=== PATIENT | male | born 1980 | race Caucasian/White ===

== ENCOUNTER 2024-04-16 09:37 | Outpatient (REF) | payer MEDICAID, SELFPAY ==
[2024-04-16 11:54] LABS: Alanine Aminotransferase 18 U/L (0-40); Albumin Level 3.7 g/dL (3.5-5.0); Alkaline Phosphatase 89 U/L (39-117); Anion Gap 13 (12-20); Aspartate Amino Transferase 25 U/L (5-37); Bilirubin Total 0.5 mg/dL (0.0-1.0); Blood Urea Nitrogen 12 mg/dL (9-16); Calcium 9.5 mg/dL (8.4-10.2); Carbon Dioxide 24 mmol/L (22-29); Chloride 107 mmol/L (96-108); Cholesterol 143 mg/dL (<200); Estimated Glomerular Filt Rate > 60; Glucose Random 80 mg/dL (60-115); HDL Cholesterol 39 mg/dL (>40); LDL Cholesterol Calculated 88 mg/dL (<100); Potassium 3.4 mmol/L (3.3-5.1); Sodium 141 mmol/L (135-145); Total Protein 9.2 g/dL (6.5-8.0); Triglycerides 82 mg/dL (<150)
--- OUTSIDE RECORDS SUMMARY | 2024-04-16 14:04 | XMS_ITS | Clinical Summary ---
Author Organization [facility] Address [address] [id number] Care Team Providers Care Ppap Coordinator Name Role Phone Rodrigo Goodwin Primary Care Provider [phone] Allergies No known active allergies Medications amLODIPine (NORVASC) 5 mg tablet Take 5 mg by mouth. 10/16/2022 Active aspirin chewable tablet 81 mg SMARTSI Tablet(s) By Mouth Daily Active metoprolol tartrate (LOPRESSOR) 25 mg tablet SMARTSI Tablet(s) By Mouth Twice Daily 11/22/2022 Active potassium citrate ER (UROCIT-K) 10 mEq (1,080 mg) tablet SMARTSI Tablet(s) By Mouth Twice Daily Active simethicone (MYLICON) 80 mg chewable tablet SMARTSI Tablet(s) By Mouth 3 Times Daily PRN Active sulfamethoxazole -trimethoprim (BACTRIM SS) 400-80 mg tablet SMARTSI Tablet(s) By Mouth Daily Active tolterodine LA (DETROL LA) 4 mg 24 hr capsule Take 4 mg by mouth. 10/16/2022 Active Active Problems Problem Noted Date Diagnosed Date Abscess and cellulitis of gluteal region 024 Sacral decubitus ulcer, stage III 01/03/2023 Decubitus ulcer of right ischial area, stage III 01/03/2023 Social History Tobacco Use Types Packs/Day Years Used Date Smoking Tobacco: Never Smokeless Tobacco: Never Tobacco Cessation:Counseling Given: Not Answered Sex and Gender Information Value Date Recorded Sex Assigned at Male 12/08/2023 3:30 PM EDT Legal Sex Male 2:27 PM EDT Gender Identity Not on file Sexual Orientation Not on file Last Filed Vital Signs Vital Sign Reading Time Taken Comments Blood Pressure 125/90 12/27/2023 11:07 AM EDT Pulse 98 12/27/2023 11:07 AM EDT Temperature 36.9 ??C (98.5 ??F) 12/27/2023 11:07 AM E DT Respiratory Rate - - Oxygen Saturation - - Inhaled Oxygen Concentration - - Weight - - Height - - Body Mass Index - - Plan of Treatment Health Maintenance Due Date Last Done Comments HIV Screening 1979 Hepatitis C Screening 1980 Varicella Vaccines (1 of 2 - 13+ 2-dose series) 12/16/1992 Hepatitis B Vaccines (1 of 3 - 19+ 3-dose series) 12/16/1998 COVID-19 Vaccine (3 - season) 2023 08/08/2020, 07/17/2020 Influenza Vaccine (#1) 2023 9, 12/27/2017, 02/05/2016, Additional history exists Alcohol/Substance Use Screening 03/21/2024 Depression Screening and Follow-Up 03/21/2024 Social Drivers of Health Annual Screening 03/21/2024 DTaP,Tdap,and Td Vaccines (2 - Td or Tdap) 2024 2014 RSV Vaccine (60+ years old and patients) (1 - 1-dose 75+ series) 12/16/2054 Pneumococcal Vaccine: Pediatric (0-5 Years) and At-Risk Patients (6-64 Years) Aged Out 01/28/2012, 01/08/2010 No longer eligibl e based on patient's age to complete this topic Insurance [employer] Advance Directives Healthcare Agents on File Name Relationship Healthcare Agent Relationship Communication Masha Chairez Mother Next of Kin Care Teams Ppap Coordinator Relationship Specialty Start Date End Date Rodrigo Goodwin PA [address] [place] [address] E/R RENATA Charles [address] PCP - General Emergency Medicine 12/29/22
--- OUTSIDE RECORDS SUMMARY | 2024-04-16 14:04 | XMS_ITS | Encounter Summary ---
Author Organization [employer] [facility] Address [address] [place] [address] 7 [place] [address] Care Team Providers Care Shale Planer Operator Name Role Phone Candido Lozano MD Primary Care Provide r Encounter Details Date Type Department Care Team (Latest Contact Info) Description 06/17/2021 Abstract [facility] Dental, Provider, DDS Social History Tobacco Use Types Packs/Day Years Used Date Smoking Tobacco: Never Assessed Sex and Gender Information Value Date Recorded Sex Assigned at Male 01/18/2022 10:17 AM EDT Legal Sex Male 10:17 AM EDT Gender Identity Male 01/18/2022 10:17 AM EDT Sexual Orientation Choose not to disclose 2021 10:17 AM EDT documented as of this encounter Plan of Treatment Upcoming Encounters Date Type Department Care Team ( st Contact Info) Description 04/19/2024 1:30 PM EST Office Visit [facility] [address] [place] [address] Candido Lozano MD [address] [place] [address] 07/12/2024 2:30 PM EDT Office Visit [facility] [address] [place] [phone] Candido Lozano MD [address] [place] [address] documented as of this encounter Visit Diagnoses Not on filedocumented in this encounter Care Teams Shale Planer Operator Relationship Specialty Start Date End Date Candido Lozano MD [address] [place] [address] [place] [address] PCP - General Internal Medicine 12/13/13 Brittany Wong Foxing PainterVarnish Mixer 03/08/24 documented as of this encounter
--- OUTSIDE RECORDS SUMMARY | 2024-04-16 14:04 | XMS_ITS | Encounter Summary ---
Author Organization [employer] Address [address] [facility] 7t [place] [address] Care Team Providers Care Manager Ob Name Role Phone Candido Lozano MD Primary Care Provide r Reason for Visit * Reason Onset Date Comments DME from [facility] pull up 04/06/2024 Encounter Details Date Type Department Care Team ([facility] st Contact Info) Description 04/06/2024 Telephone [facility] [address] [place] [address] Laura Quick MA DME from [facility] pull up Social History Tobacco Use Types Packs/Day Years Used Date Smoking Tobacco: Never Passive Smoke Exposure: Never Smokeless Tobacco: Never Depression Answer Date Recorded Patient Health Questionnaire-9 Score 0 07/05/2023 Patient Health Questionnaire-9 Score 0 07/05/2023 Last PHQ-9: Questionnaire Data Not on file 0 07/05/2023 Housing Stability Answer Date Recorded What is your housing situation today? I have jose berger 01/10/[address] you li ve. Do you have problems with any of the following? None of the above 01/10/2023 Food Insecurity Answer Date Recorded Within the past 12 months, y ou worried that your food would run out before you got money to buy more: Sometimes True 2023 Within the past 12 months,th e food you bought just didn't last and you didn't have enough money to get more: Sometimes True 06/23/2023 Transportation Answer Date Recorded In the past 12 months, has l ack of transportation kept you from medical appts, meetings, work or from getting things needed for daily living? No 06/23/2023 Utilities Answer Date Recorded In the past 12 months, has t he electric, gas, oil or water company threatened to shut off services in your home? No 01/10/2023 Depression Answer Date Recorded Patient Health Questionnaire-2 Score 0 07/05/2023 Sex and Gender Information Value Date Recorded Sex Assigned at Male 01/18/2022 10:17 AM EDT Legal Sex Male 10:17 AM EDT Gender Identity Male 01/18/2022 10:17 AM EDT Sexual Orientation Choose not to disclose 2021 10:17 AM EDT documented as of this encounter Miscellaneous Notes * Telephone Encounter - Laura Quick MA - 04/06/2024 10:13 AM EST [facility] prescription and medical necessity review form for Absorbant products for Diapers/pull ups from [employer] placed on PCP desk for signature. documented in this encounter Plan of Treatment Upcoming Encounters Date Type Department Care Team (Late st Contact Info) Description 04/19/2024 1:30 PM EST Office Visit [facility]INE [address] [place] [address] Candido Lozano MD [address] [place] [address] 07/12/2024 2:30 PM EDT Office Visit [facility] [address] [place] [address] Candido Lozano MD [address] [place] [address] documented as of this encounter Visit Diagnoses Not on filedocumented in this encounter Additional Health Concerns Assessment Noted Time PHQ-9 Depression Total Score: 0 07/05/19 24 10:42 AM EDT documented as of this encounter Care Teams Manager Ob Relationship Specialty Start Date End Date Candido Lozano MD [address] [place] [address] PCP - General Internal Medicine 12/13/13 Brittany Wong Behaviour Support TeacherRim Fire Charger Operator 03/08/24 documented as of this encounter
--- OUTSIDE RECORDS SUMMARY | 2024-04-16 14:04 | XMS_ITS | Encounter Summary ---
Author Organization [employer] Address [address] [facility] 7t [place] [address] Care Team Providers Care Mitten Stitcher Name Role Phone Candido Lozano MD Primary Care Provide r Encounter Details Date Type Department Care Team (Late st Contact Info) Description 03/28/2024 Patient Outreach [facility] [address] [place], [place] [phone] Candido Lozano MD [address] [place], [place] [phone] Social History Tobacco Use Types Packs/Day Years [...] t he electric, gas, oil or water [employer] threatened to shut off services in your [...] as of this encounter Miscellaneous Notes * Significant Event - Claire Navarro - 03/28/2024 8:23 AM EST 03/28/24822 Hospital Discharges and Admission for [facility] Type of Visit Hospital Admission Date of Admission/Visit 03/25/24 Date of Discharge 03/27/24 Facility [facility] Diagnosis Cellulitis of right buttock Disposition Discharged Home Follow-Up Actions Follow-Up Needed Provider appointment Follow-Up Outcome Spoke to Patient Initial Contact Date 03/28/24 EVELINA Rangel placed outbound call to patient for HDF outreach. CC placing call to offer patient with an HDF appointment with provider. Patient's name and were confirmed. Patient was educated on the importance of following up with provider following an inpatient admission. Patient offered an HDF appt. Patient is agreeable to an appointment and has been scheduled for 04/19/2024 at 1:30 with --- insurance verified prior to scheduling. Patient advised to bring to appointment a photo id and insurance card. Biggest concerns at appointment at this time is --- Patient provided with education on contacting the Health Center with any questions or concerns prior to the scheduled appointment. Patient ed ucated on extended clinic hours on Mondays and Wednesdays, and Walk-In Urgent Care Located in [facility]. Patient provided with after-hours line for [facility], , which offer night time triageservice and option to transfer to windows phone developer provider if needed. CC will request Discharge summaries to scan into chart. documented in this encounter Plan of Treatment Upcoming Encounters Date Type Department Care Team ([facility] st Contact Info) Description 04/19/2024 1:30 PM EST Office Visit [facility] [address] [facility] [address] Candido Lozano MD [address] [place] [phone] 07/12/2024 2:30 PM EDT Office Visit [facility] [address] [place] [phone] Candido Lozano MD [address] [place] [phone] documented as of this encounter Visit Diagnoses Not on filedocumented in this encounter Additional Health Concerns Assessment Noted Time PHQ-9 Depression Total Score: 0 07/05/19 10:42 AM EDT documented as of this encounter Care Teams Mitten Stitcher Relationship Specialty Start Date End Date Candido Lozano MD [address] [place] MD [phone] PCP - General Internal Medicine 12/13/13 Brittany Wong Stamp Machine ServicerStudent Financial Services Counselor 03/08/24 documented as of this encounter
--- OUTSIDE RECORDS SUMMARY | 2024-04-16 14:04 | XMS_ITS | Encounter Summary ---
Author Organization [employer] Address [address] [facility] 7 [place] [address] Care Team Providers Care American Sign Language Interpreter Name Role Phone Candido Lozano MD Primary Care Provide r Reason for Visit * Reason Onset Date Comments Durable Medical Equipment 03/26/2024 Encounter Details Date Type Department Care Team ([facility] st Contact Info) Description 03/26/2024 Telephone [facility] MEDICINE [address] [place], [place] [phone] Candido Lozano MD [address] [place], [place] [phone] Durable Medical Equipment Social History Tobacco Use Types Packs/Day Years [...] encounter Miscellaneous Notes * Telephone Encounter - Howard Valle RN - 03/29/2024 9:46 AM EST DME for wound supplies signed and faxed to [facility] . Confirmation received and sent to [facility]. If patient calls to check status on above, please advise them to contact [facility] at [phone]. * Telephone Encounter - Howard Valle RN - 03/26/2024 12:55 PM EST General prescription form for Woundcare supplies from [facility] placed on PCP desk for signature. documented in this encounter Plan of Treatment Upcoming Encounters Date Type Department Care Team (Late st Contact Info) Description 04/19/2024 1:30 PM EST Office Visit [facility] MEDICINE [address] [place] [address] Candido Lozano MD [address] [place] [address] 07/12/2024 2:30 PM EDT Office Visit [facility]INE [address] [place] [address] Candido Lozano MD [address] [place] [address] documented as of this encounter Visit Diagnoses Not on filedocumented in this encounter Additional Health Concerns Assessment Noted Time PHQ-9 Depression Total Score: 0 07/05/19 10:42 AM EDT documented as of this encounter Care Teams American Sign Language Interpreter Relationship Specialty Start Date End Date Candido Lozano MD [address] [place] [address] PCP - General Internal Medicine 12/13/13 Brittany Wong Assistant Terminal ManagerCompounding Scaler 03/08/24 documented as of this encounter
--- OUTSIDE RECORDS SUMMARY | 2024-04-16 14:04 | XMS_ITS | Encounter Summary ---
Author Organization [employer] Address [address] [place] [address] 7 [place] [address] Care Team Providers Care Ip Technology Transactions Attorney Name Role Phone Candido Lozano MD Primary Care Provide r Reason for Visit * Reason Onset Date Comments Durable Medical Equipment 06/02/2022 Encounter Details Date Type Department Care Team (Late st Contact Info) Description 06/02/2022 Telephone [facility] [address] [place], [place] [phone] Candido Lozano MD [address] [place] [address] Durable Medical Equipment Social History Tobacco Use [...] encounter Miscellaneous Notes * Telephone Encounter - Marlyn Quick - 06/07/2022 10:42 AM EDT Called Brittany from [facility] gave her all the info on bed and [facility] phone number she stated will f/u Tuesday with them * Telephone Encounter - Marlyn Quick - 06/07/2022 10:30 AM EDT Patient received hospital bed last yr in July was approved they stated for four months till November 2021 I asked [facility] how can that be given pt dx she put me on a brief hold to look further into it. Turns out it was an error on their end what wasn't approved was the air mattress but the bed was pd for. So Mame Kevin from [facility] store stated pt will receive his bed today or tomorrow latest. Any question [facility] phone number is [phone] * Telephone Encounter - Omer Hartley - 06/02/2022 2:47 PM EDT Tc from [place] with [facility] requesting a script for a hospital bed to be send [facility] Please contact Brittany at [phone] documented in this encounter Plan of Treatment Upcoming Encounters Date Type Department Care Team (Late st Contact Info) Description 04/19/2024 1:30 PM EST Office Visit [facility] [address] [place] [address] Candido Lozano MD [address] [place] [address] 07/12/2024 2:30 PM EDT Office Visit [facility] [address] [place] [address] Candido Lozano MD [address] [place] [address] documented as of this encounter Visit Diagnoses Not on filedocumented in this encounter Care Teams Ip Technology Transactions Attorney Relationship Specialty Start Date End Date Candido Lozano MD [address] [place] [address] PCP - General Internal Medicine 12/13/13 Brittany Wong Packaging AssemblerMaterial Control Supervisor 03/08/24 documented as of this encounter
--- OUTSIDE RECORDS SUMMARY | 2024-04-16 14:04 | XMS_ITS | Referral Summary ---
Author Organization [facility] Address [address] [phone] Care Team Providers Care Rock Loader Name Role Phone Rodrigo Goodwin Primary Care Provider [phone] Allergies No known active allergies Medications amLODIPine [...] Mass Index - - Plan of Treatment Not on file Insurance [employer] Advance Directives Healthcare Agents on File Name Relationship Healthcare Agent Relationship Communication Masha Chairez Mother Next of Kin Care Teams Rock Loader Relationship Specialty Start Date End Date Rodrigo Goodwin PA [address] [facility]- E/R RENATA [place] [address] PCP - General Emergency Medicine 12/29/22
--- OUTSIDE RECORDS SUMMARY | 2024-04-16 14:04 | XMS_ITS | Encounter Summary ---
Author Organization [employer] Address [address] [facility] 7 [place] [address] Care Team Providers Care Traffic Signal Supervisor Maintenance Name Role Phone Candido Lozano MD Primary Care Provide r Reason for Visit * Reason Onset Date Comments DME Uli 04/11/2024 Encounter Details Date Type Department Care Team ([facility] st Contact Info) Description 04/11/2024 Telephone [facility] [address] [place], [place] [phone] Candido Lozano MD [address] [place] [address] DME Uli Social History Tobacco Use Types Packs/Day Years [...] encounter Miscellaneous Notes * Telephone Encounter - Leonor Kelly MA - 04/11/2024 4:30 PM EST Received confirmation for wound cleanser, sent to to scan. LB documented in this encounter Plan of Treatment Upcoming Encounters Date Type Department Care Team (Late st Contact Info) Description 04/19/2024 1:30 PM EST Office Visit [facility] [address] [place] [phone] Candido Lozano MD [address] [place] [address] 07/12/2024 2:30 PM EDT Office Visit [facility] [address] [place] [phone] Candido Lozano MD [address] [place] [phone] documented as of this encounter Visit Diagnoses Not on filedocumented in this encounter Additional Health Concerns Assessment Noted Time PHQ-9 Depression Total Score: 0 07/05/19 10:42 AM EDT documented as of this encounter Care Teams Traffic Signal Supervisor Maintenance Relationship Specialty Start Date End Date Candido Lozano MD [address] [place] [phone] PCP - General Internal Medicine 12/13/13 Brittany Wong [place] CutterElevated Work Platform Operator 03/08/24 documented as of this encounter
--- OUTSIDE RECORDS SUMMARY | 2024-04-16 14:04 | XMS_ITS | Encounter Summary ---
Author Organization [employer] Address 75 [facility] 7t [place] [address] Care Team Providers Care Mental Health Clinician Name Role Phone Candido Lozano MD Primary Care Provide r Reason for Visit * Reason Comments Med Refill Encounter Details Date Type Department Care Team ([facility] st Contact Info) Description 03/25/2024 Refill [facility] [address] [place], [place] [phone] Tia Alfredo MD [address] [place], [place] [phone] Social History Tobacco Use Types Packs/Day Years [...] Description 04/19/2024 1:30 PM EST Office Visit [facility] [address] [place], [place] [phone] Candido Lozano MD [address] [place] [address] 07/12/2024 2:30 PM EDT Office Visit [facility] [address] [place] [address] Candido Lozano MD [address] [place] [phone] documented as of this encounter Visit Diagnoses Not on filedocumented in this encounter Additional Health Concerns Assessment Noted Time PHQ-9 Depression Total Score: 0 07/05/19 24 10:42 AM EDT documented as of this encounter Care Teams Mental Health Clinician Relationship Specialty Start Date End Date Candido Lozano MD [address] [place] [address] PCP - General Internal Medicine 12/13/13 Brittany Wong Lead Ios DeveloperAssociate Professor Of Engineering 03/08/24 documented as of this encounter
--- OUTSIDE RECORDS SUMMARY | 2024-04-16 14:04 | XMS_ITS | Encounter Summary ---
Author Organization [employer] Address [address] [place] [address] 7 [place] [address] Care Team Providers Care Ribbon Lapper Tender Name Role Phone Candido Lozano MD Primary Care Provide r Reason for Visit * Reason Onset Date Comments DME to [place] 04/06/2024 Encounter Details Date Type Department Care Team ([facility] st Contact Info) Description 04/06/2024 Telephone [facility] [address] [place], [place] [phone] Candido Lozano MD [address] [place], [place] [phone] DME to Uli Social History Tobacco Use Types Packs/Day Years Used Date Smoking Tobacco: Never Passive Smoke Exposure: Never Smokeless Tobacco: Never Depression Answer Date Recorded Patient Health Questionnaire-9 Score 0 07/05/2023 Patient Health Questionnaire-9 Score 0 07/05/2023 Last PHQ-9: Questionnaire Data Not on file 0 07/05/2023 Housing Stability Answer Date Recorded What is your housing situation today? I have jose bergre 01/10/[address] you li [...] Telephone Encounter - Leonor Kelly MA - 04/06/2024 9:15 AM EST Received confirmation for adult pull ups, sent to to scan. LB documented in this encounter Plan of Treatment Upcoming Encounters Date Type Department Care Team (Late st Contact Info) Description 04/19/2024 1:30 PM EST Office Visit [facility] [address] [place] [phone] Candido Lozano MD [address] [place] [phone] 07/12/2024 2:30 PM EDT Office Visit [facility] [address] [place] [address] Candido Lozano MD [address] [place] [phone] documented as of this encounter Visit Diagnoses Not on filedocumented in this encounter Additional Health Concerns Assessment Noted Time PHQ-9 Depression Total Score: 0 07/05/19 10:42 AM EDT documented as of this encounter Care Teams Ribbon Lapper Tender Relationship Specialty Start Date End Date Candido Lozano MD [address] [place] [phone] PCP - General Internal Medicine 12/13/13 Brittany Wong Cyber Incident HandlerCarboy Filler 03/08/24 documented as of this encounter
--- OUTSIDE RECORDS SUMMARY | 2024-04-16 14:04 | XMS_ITS | Encounter Summary ---
Author Organization [employer] Address [address] [facility] 7 [place] [address] Care Team Providers Care Sql Database Programmer Name Role Phone Candido Lozano MD Primary Care Provide r Reason for Visit * Reason Onset Date Comments Chart Prep 04/06/2024 Encounter Details Date Type Department Care Team ([facility] st Contact Info) Description 04/06/2024 Telephone [facility] [address] [place], [place] [phone] Candido Lozano MD [address] [place], [place] [phone] Chart Prep Social History Tobacco Use Types Packs/Day Years [...] Encounter - Leonor Kelly MA - 04/06/2024 2:26 PM EST Chart Prep Labs: not done ; contacted pt's parent or guardian with confirmed, expressed that there are some labs that need to be completed before expected appt. Pt's parent or guardian understood. Images: not applicable Vaccines due: Covid Due, Hep B Due, and Flu Due Referrals: Not Applicable Screenings: HIV screening Overdue care gaps: [facility] and Oral Health Chart prep for upcoming appt with Dr.Esparza salazar. LB documented in this encounter Plan of Treatment Upcoming Encounters Date Type Department Care Team (Late st Contact Info) Description 04/19/2024 1:30 PM EST Office Visit [facility] [address] [place] [phone] Candido Lozano MD [address] [place] [phone] 07/12/2024 2:30 PM EDT Office Visit [facility] [address] [place] [address] Candido Lozano MD [address] [place] [phone] documented as of this encounter Visit Diagnoses Not on filedocumented in this encounter Additional Health Concerns Assessment Noted Time PHQ-9 Depression Total Score: 0 07/05/19 24 10:42 AM EDT documented as of this encounter Care Teams Sql Database Programmer Relationship Specialty Start Date End Date Candido Lozano MD [address] [place] [phone] PCP - General Internal Medicine 12/13/13 Brittany Wong Employment And Claims AideDope Worker 03/08/24 documented as of this encounter
--- OUTSIDE RECORDS SUMMARY | 2024-04-16 14:04 | XMS_ITS | Encounter Summary ---
Author Organization [employer] Address [address] [facility] [address] 7[address] [place] [address] Care Team Providers Care Knapsack Sprayer Name Role Phone Candido Lozano MD Primary Care Provide r Encounter Details Date Type Department Care Team ([facility] st Contact Info) Description 04/02/2024 Telephone [facility] [address] [place] [address] De[place], [place] Social History Tobacco Use Types Packs/Day Years [...] encounter Miscellaneous Notes * Telephone Encounter - Mariaelena Philippe MA - 04/02/2024 10:25 AM EST DME for adult pull up diaper/brief; XL [id number] from [place] received and is being processed. documented in this encounter Plan of Treatment Upcoming Encounters Date Type Department Care Team (Late st Contact Info) Description 04/19/2024 1:30 PM EST Office Visit [facility] [address] [place] [phone] Candido Lozano MD [address] [place] [phone] 07/12/2024 2:30 PM EDT Office Visit [facility] [address] [place] [phone] Candido Lozano MD [address] [place] [phone] documented as of this encounter Visit Diagnoses Not on filedocumented in this encounter Additional Health Concerns Assessment Noted Time PHQ-9 Depression Total Score: 0 07/05/19 24 10:42 AM EDT documented as of this encounter Care Teams Knapsack Sprayer Relationship Specialty Start Date End Date Candido Lozano MD [address] [place] [phone] PCP - General Internal Medicine 12/13/13 Brittany Wong Director Of RecruitmentDirector Industrial 03/08/24 documented as of this encounter
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
== END 2024-04-16 09:38 | disposition home or self-care (01) ==
LOC: HO.HHCL 09:37
PROVIDERS: Visit Provider Internal Medicine
DX: I10 Essential (primary) hypertension (principal)
CPT/HCPCS: 36415; 80053; 80061

== ENCOUNTER 2024-11-14 10:43 | Outpatient (REF) | payer MEDICAID, SELFPAY ==
--- OUTSIDE RECORDS SUMMARY | 2020-12-08 09:30 | XMS_ITS | Continuity of Care Document ---
Author Organization [facility] Address [address] [facility] [address] [place] [address] Phone Care Team Providers Care Cable Installer Repairer Name Role Phone Hang Lofton MD Unavailable Unavailabl e Allergies, Adverse Reactions, Alerts Substance Reaction Status Criticality No Known Allergies Active No Inform ation Medications Medication Instructions Dosage Effective Dates (start - stop) Status Comments METFORMIN HCL (unknown strength) Not Available - Active Procedures Procedure Date Office/Outpt E&M Established 15 Mins Nov Duplex Scan-extrem Veins; Comp Duplex Scan-extrem Veins; Uni/ Endovenous Rf, 1st Vein Office/Outpt E&M Established 10 Mins Oct Office/Oupt E&M New Pt 45 Mins Duplex Scan-extrem Veins; Comp Advance Directives Directive Yes / No Effective Date File Name No Information Encounters Encounter Description Practice Location Reason(s) For Visit Diagnoses Date Provider Providers Copied on Encounter Office/Outpt E&M Established 15 Mins [facility], [address], [place], [place], [id number], [place] tel:[phone] - [facility] Body mass index (BMI) 40.0-44.9, adultVaricose veins of bi low extrem w oth complicationsVenou s insufficiency (chronic) (peripheral) Sep-2 1 Rolly Mauricio. [address], [address], [place], [address], [place]. tel: [phone] Referring Provider: Hang Lazo, [address], [place], [address]. tel:[phone] [facility], [address], [place], [place], [id number], [place] tel:[phone] [place] [facility] [place] Chronic venous htn w oth comp of bilateral low extrm Sep-2 1 Rolly Mauricio. [address], [address], [place], [address], [place]. tel: [phone] Referring Provider: Hang Lazo, [address] [place] [address] [address], [place], [address]. tel:[phone] [facility], [address], [place], [place], [id number], [place] tel:[phone] [place] [facility] [place] Encntr for f/u exam aft trtmt for cond oth than malig neoplmVaricose veins of left lower extremities with pain 1 Rolly Mauricio. [address] [place] [address], [address], [place], [address], [place]. tel: [phone] Referring Provider: Hang Lazo, [address], [place], [address]. 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 [address], [address], [place], [address], [place]. tel: [phone] Referring Provider: Hang Lazo, [address], [place], [place], [facility]. tel: Office/Outpt E&M Established 10 Mins [facility], [address] [place] [address], [id number], tel:[phone] [facility] Body mass index (BMI) 40.0-44.9, adultVenous insufficiency (chronic) (peripheral) 1 Rolly Mauricio. [address] [place] [address] [address], [place], [place], [facility], . tel: [phone] Referring Provider: Hang Lazo, [address] [place] [address], [place], [place], [facility]. tel: Office/Oupt E&M New Pt 45 Mins [facility], [address] [place] [address], [id number], [place] tel:[phone] [facility] Body mass index (BMI) 40.0-44.9, adultVenous insufficiency (chronic) (peripheral)Varico se veins of left lower extremities with pain 1 Rolly Mauricio. [address] [place] [address], [place], [address], [place]. tel: [phone] Referring Provider: Hang Lazo, [address] [place] [address], [place], [facility]. tel: [facility], [address] [place] [address], [id number], [place] tel:[phone] [facility] Chronic venous htn w inflammation of bilateral low extrmVaricose veins of bilateral lower extremities with pain 1 Rolly Mauricio. [address] [place] [address], [address], [place], [address], [place]. tel: [phone] Referring Provider: Hang Lazo, [address] [place] [address] [address], [place], [place], [facility]. tel:[phone] Family History Family Member Type Diagnosis Age At Onset No Information Payers Payer name Insurance type Covered democrat ID Tory longoria (s) [id number] [facility] [id number] Social History Type Description Quantity Date Captured Comments Alcohol Use Details No Caffeine Use Details Unknown Tobacco Use Status Never smoked tobacco 2020 Smoking Status Never smoker Non-Smoking Tobacco Use Details : No Details Available : No Details Available Sex Male Vital Signs Date / Time: Height Weight BMI Pulse Rate Blood Pressure Temperature Respiratory Rate Body Surface Area Head Circumference Head Circ. Percentile Wt./Ga. Percentile BMI percentile Pulse Ox Inhaled Ox 1:33 PM 70.00 in 128.367 kg (283.00 lbs) 40.6 0 kg/m eter (2) 98 /min 138/88 mm[Hg] Chief Complaint And Reason For Visit No Information Reason For Referral Reason For Referral No Information Plan Of Treatment Date Type Action Status Goal Diet education completed Goal Diet education completed Goal Diet education completed Referral Ordered: Duplex Scan-extrem Veins; Comp Bilateral leg ordered History Of Present Illness Encounter Date Complaint History Of Prese nt Illness No Information Functional Status Date Functional Assessmen t No Information Instructions Date Instruction Additional Infor mation Diet education Related to Body mass index [BMI]40.0-44.9, adult Giving Encouragement to Exercise Related to Body mass index [BMI]40.0-44.9, adult Patient education booklet given Related to V V w/Othr Complictns (Yjcy-Syejs-Klipzbif); BILAT Diet education Related to Body mass index [BMI]40.0-44.9, adult Giving Encouragement to Exercise Related to Body mass index [BMI]40.0-44.9, adult Continue compression stocking us e Related to Venous Insufficiency (Chronic / Peripheral) Pre and post instruc tions reviewed and provided Related to Venous Insufficiency (Chronic / Peripheral) Pre and post instruc tions reviewed and provided Related to Venous Insufficiency (Chronic / Peripheral) Patient education booklet given Related to Venous Insufficiency (Chronic / Peripheral) Diet education Related to Body mass index [BMI]40.0-44.9, adult Giving Encouragement to Exercise Related to Body mass index [BMI]40.0-44.9, adult Assessments Type Assessment Date assessment Body mass index [BMI]40.0-44.9, adult assessment Varicose veins of bi low extrem w oth complications assessment Venous insufficiency (chronic) ( peripheral) Patient Care Teams Name Effective Dates (start - stop) Status Members No Information
--- OUTSIDE RECORDS SUMMARY | 2024-11-14 11:37 | XMS_ITS ---
Author Organization [employer] Address [address] [place] [address] Care Team Providers Care Dog Trainer Name Role Phone Candido Lozano MD Primary Care Provide r Vincent Lundberg Unavailable Emile Lundberg RN Unavailable [phone] [phone] Complex Status:Outreach In Progress (Enrolling) Start date:10/02/2024 Enrollment reason:ADT Feed Overview ADT- admitted [facility] 10/02/24 Case Team Name Relationship Phone Vincent Lundberg(Responsible Staff) [phone] Continued Care and Services Coordination
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
--- OUTSIDE RECORDS SUMMARY | 2024-11-14 11:37 | XMS_ITS ---
Author Organization [employer] Address [address] [place] [address] Care Team Providers Care Feed Miller Name Role Phone Candido Lozano MD Primary Care Provide r Vincent Lundberg Unavailable Emile Lundberg RN Unavailable [phone] CM Complex Status:Outreach In Progress (Enrolling) Start date:10/02/2024 Enrollment reason:ADT Feed Overview ADT- admitted [facility] 10/02/24 Case Team Name Relationship Phone Emile Lundberg RN(Responsible Staff) Registered Nurse [phone] Continued Care and Services Coordination
--- OUTSIDE RECORDS SUMMARY | 2024-11-14 11:37 | XMS_ITS | Encounter Summary ---
Author Organization [facility] Address [address] [place] [phone] Phone Care Team Providers Care Progress Worker Name Role Phone Unavailable Primary Care Provider Unavailabl e Encounter Details Date Type Department Care Team (Late st Contact Info) Description 01/21/2020 Procedure Pass [facility] [address] [place] [address] [place] [address] Social History Tobacco Use Types Packs/Day Years Used Date Smoking Tobacco: Never Assessed Sex and Gender Information Value Date Recorded Sex Assigned at Not on file Legal Sex Male 12:02 PM EDT Gender Identity Not on file Sexual Orientation Not on file documented as of this encounter Plan of Treatment Not on file documented as of this encounter Visit Diagnoses Not on filedocumented in this encounter Additional Source Comments The information contained in this document represents components of the legal health record. It is not the complete legal health record.[facility]
--- OUTSIDE RECORDS SUMMARY | 2024-11-14 11:37 | XMS_ITS | Encounter Summary ---
Author Organization [employer] Address [address] [place] [address] [address], [place] [address] Care Team Providers Care International Nurse Name Role Phone Candido Lozano MD Primary Care Provide r Keerthi Rahman RN Unavailable [phone] Vincent Lundberg Unavailable Emile Lundberg RN Unavailable [phone] Reason for Visit * Reason Onset Date Comments Durable Medical Equipment 06/02/2022 Encounter Details Date Type Department Care Team (Late st Contact Info) Description 06/02/2022 Telephone [facility] [address] [place], [place] [phone] Candido Lozano MD [address] [place], [place] [phone] Durable Medical Equipment Social History Tobacco Use [...] 06/07/2022 10:42 AM EDT Called Brittany from [facility] gave her all the info on bed [...] bed today or tomorrow latest. Any question [facility] phone number is [phone] * Telephone Encounter - Omer Hartley - 06/02/2022 2:47 PM EDT Tc from [place] with [facility] requesting a script for a hospital bed to be send graciela L&C Please contact Brittany at [phone] documented in this encounter Plan of Treatment Upcoming Encounters Date Type Department Care Team (Late st Contact Info) Description 11/15/2024 11:30 AM EDT Office Visit [facility] [address] [place] [address] Candido Lozano MD [address] [place] [address] documented as of this encounter Visit Diagnoses Not on filedocumented in this encounter Care Teams International Nurse Relationship Specialty Start Date End Date Candido Lozano MD [address] [place] [address] PCP - General Internal Medicine 12/13/13 Keerthi Rahman RN [address] [place] [address] Registered Nurse Family Medicine 10/02/24 11/06/24 Vincent Lundberg 10/02/24 Emile Lundberg RN [address] [place] [address] Registered Nurse Family Medicine 11/06/24 Brittany Wong Lens Grinding Machine OperatorDocument Coordinator 03/08/24 [facility] 10/12/24 documented as of this encounter
--- OUTSIDE RECORDS SUMMARY | 2024-11-14 11:37 | XMS_ITS | Encounter Summary ---
Author Organization [facility] Address [address] [place] [address] Phone Care Team Providers Care Lumber Tripper Name Role Phone Unavailable Primary Care Provider Unavailabl e Encounter Details Date Type Department Care Team (Late st Contact Info) Description 01/21/2020 Ancillary Orders [facility] [address] [place] [address] Komal Arvizu PA [address] [place] [address] [email or web address] Palpitations Social History Tobacco Use Types Packs/Day Years Used Date Smoking Tobacco: Never Assessed Sex and Gender Information Value Date Recorded Sex Assigned at Not on file Legal Sex Male 12:02 PM EDT Gender Identity Not on file Sexual Orientation Not on file documented as of this encounter Plan of Treatment Not on file documented as of this encounter Results * Holter Monitor 48 Hours (01/21/2020 12:20 PM EST) Anatomical Region Laterality Modality Heart Other Narrative 01/21/2020 12:48 PM EST Holter monitor report Indication palpitations Findings: The underlying rhythm is sinus rhythm with an average heart rate 85 bpm. Minimum heart rate 56 bpm, maximal heart rate 130 bpm. There are rare isolated PVCs. There are frequent premature atrial contractions occurring 5% of total beats. There are rare atrial couplets. No sustained tachyarrhythmias. There were some very rare very short atrial runs of only 3 beats. Conclusion: Frequent premature atrial contractions. Procedure Note Armando Leslie MD - 01/21/2020 Holter monitor report Indication palpitations Findings: The underlying rhythm is sinus rhythm with an average heart rate 85 bpm.Minimum heart rate 56 bpm, maximal heart rate 130 bpm. There are rare isolated PVCs. There are frequent premature atrial contractions occurring 5% of totalbeats. There are rare atrial couplets. No sustained tachyarrhythmias.There were some very rare very short atrial runs of only 3 beats. Conclusion: Frequent premature atrial contractions. [facility] ORDERA BLES Final Result documented in this encounter Visit Diagnoses Diagnosis Palpitations Palpitations documented in this encounter Additional Source Comments The information contained in this document represents components of the legal health record. It is not the complete legal health record.[facility]
--- OUTSIDE RECORDS SUMMARY | 2024-11-14 11:37 | XMS_ITS | Encounter Summary ---
Author Organization [employer] Address [address] [place] [address], [place] [address] Care Team Providers Care Switch Cleaner Name Role Phone Candido Lozano MD Primary Care Provide r Keerthi Rahman RN Unavailable [phone] Vincent Lundberg Unavailable Emile Lundberg RN Unavailable [phone] Encounter Details Date Type Department Care Team (Latest Contact Info) Description 06/17/2021 Abstract [facility] CONVERSIONS Dental, Provider, DDS Social History [...] Description 11/15/2024 11:30 AM EDT Office Visit [facility] MEDICINE [address] [place], [place] [phone] Candido Lozano MD [address] [place], [place] [phone] documented as of this encounter Visit Diagnoses Not on filedocumented in this encounter Care Teams Switch Cleaner Relationship Specialty Start Date End Date Candido Lozano MD [address] [place], [place] [phone] PCP - General Internal Medicine 12/13/13 Keerthi Rahman, RN [address] [place] [address] Registered Nurse Family Medicine 10/02/24 11/06/24 Vincent Lundberg 10/02/24 Emile Lundberg RN [address] [place] [address] Registered Nurse Family Medicine 11/06/24 Brittany Wong Spout Liner HelperAssisted Living Housekeeper 03/08/24 [facility] 10/12/24 documented as of this encounter
--- OUTSIDE RECORDS SUMMARY | 2024-11-14 11:37 | XMS_ITS | Clinical Summary ---
Author Organization [facility] Address [address] [phone] Phone Care Team Providers Care Pathology Laboratory Technologist Name Role Phone Unavailable Primary Care Provider Unavailabl e Social History Tobacco Use Types Packs/Day Years Used Date Smoking Tobacco: Never Assessed Education Answer Date Recorded Are you interested in more education? Not on chan e 07/16/2022 Are you concerned about learning? Not on file 07/16/2022 No 07/16/2022 No 07/16/2022 Digital Access Answer Date Recorded No 08/17/2022 No 08/17/2022 Reliable internet access at home? Not on file 08/17/2022 Device with a working camera? Not on file Sex and Gender Information Value Date Recorded Sex Assigned at Not on file Legal Sex Male 12:02 PM EDT Gender Identity Not on file Sexual Orientation Not on file Plan of Treatment Not on file Medical Devices Not on file Insurance C3 ACO C3 ACO C3 ACO C3 ACO C3 ACO C3 ACO C3 ACO C3 ACO [facility] C3 ACO Additional Source Comments The information contained in this document represents components of the legal health record. It is not the complete legal health record.[facility]
--- OUTSIDE RECORDS SUMMARY | 2024-11-14 11:37 | XMS_ITS | Clinical Summary ---
Author Organization [facility] Address [address] [id number] Care Team Providers Care Truck Bench Mechanic Name Role Phone Rodrigo Goodwin Primary Care Provider [phone] Allergies No known active allergies Medications amLODIPine [...] 98 12/27/2023 11:07 AM EDT Temperature 36.9 C (98.5 F) 12/27/2023 11:07 AM EDT Respiratory Rate - - Oxygen Saturation - [...] Vaccine (3 - season) 2023 08/08/2020, 07/17/2020 Alcohol/Substance Use Screening 03/21/2024 Depression Screening and Follow-Up 03/21/2024 Social Drivers of Health Annual Screening 03/21/2024 Influenza Vaccine (#1) 2024 9, 12/27/2017, 02/05/2016, Additional history exists DTaP,Tdap,and Td Vaccines (2 - Td or Tdap) 2024 2014 RSV Vaccine (60+ years old and patients) (1 - 1-dose 75+ series) 12/16/2054 Pneumococcal Vaccine: Pediatric (0-5 Years) and At-Risk Patients (6-50 Years) Aged Out 01/28/2012, 01/08/2010 No longer eligibl e based on patient's age to complete this topic Insurance [employer] Advance Directives Healthcare Agents on File Name Relationship Healthcare Agent Relationship Communication Masha Chairez Mother Next of Kin Care Teams Truck Bench Mechanic Relationship Specialty Start Date End Date Rodrigo Goodwin PA [address] [place] [address] E/R RENATA Charles [address] PCP - General Emergency Medicine 12/29/22
[2024-11-14 13:16] LABS: MANUAL DIFF FLAG NO
[2024-11-14 14:07] LABS: Hematocrit 41.1 % (42.0-52.0); Hemoglobin 12.4 g/dl (14.0-18.0); Imm Gran Abs Auto 0.10 X10*3/uL (0.00-0.03); Imm Gran Pct Auto 0.6 % (0.0-0.4); Lymphocytes Absolute Auto 2.1 X10*3/uL (1.2-4.9); Mean Corpuscular HGB Conc 30.2 g/dl (31.0-36.0); Mean Corpuscular Hemoglobin 21.0 pg (27.0-33.0); Mean Corpuscular Volume 69.5 fL (80.0-98.0); NRBC Abs Auto 0.000 X10*3/uL (0.0-0.012); NRBC Pct Auto 0.0 /100WBC (0.0-0.2); Platelet Count 468 X10*3/uL (160-400); Red Blood Count 5.91 X10*6/uL (4.60-5.80); White Blood Count 16.8 X10*3/uL (4.8-10.8)
[2024-11-14 14:54] LABS: Alanine Aminotransferase 25 U/L (0-40); Albumin Level 3.9 g/dL (3.5-5.0); Alkaline Phosphatase 110 U/L (39-117); Anion Gap 18 (12-20); Aspartate Amino Transferase 36 U/L (5-37); Blood Urea Nitrogen 10 mg/dL (9-16); Calcium 9.7 mg/dL (8.4-10.2); Carbon Dioxide 22 mmol/L (22-29); Chloride 104 mmol/L (96-108); Estimated Glomerular Filt Rate > 60; Potassium 3.8 mmol/L (3.3-5.1); Sodium 140 mmol/L (135-145); Total Protein 8.9 g/dL (6.5-8.0)
== END 2024-11-14 10:44 | disposition home or self-care (01) ==
LOC: HO.HHCL 10:43
PROVIDERS: PCP Internal Medicine; Visit Provider Internal Medicine
DX: Z13.89 Encounter for screening for other disorder (principal)
CPT/HCPCS: 36415; 80053; 84443; 85025

== ENCOUNTER 2024-11-29 11:57 | Outpatient (REF) | payer MEDICAID, SELFPAY ==
--- OUTSIDE RECORDS SUMMARY | 2024-11-29 11:00 | XMS_ITS | Encounter Summary ---
Author Organization [employer] Address [address] [place] [address] Care Team Providers Care Lead Software Architect Name Role Phone Candido Lozano MD Primary Care Provide r Vincent Lundberg Unavailable Emile Lundberg RN Unavailable [phone] Encounter Details Date Type Department Care Team ([facility] st Contact Info) Description 11/29/2024 11:00 AM EDT Office Visit [facility] MEDICINE [address] [place], [place] [phone] Candido Lozano MD [address] [place], [place] [phone] Hospital discharge follow-up (Primary Dx); Paroxysmal atrial fibrillation (CMS/HCC); Pressure ulcers of skin of multiple topographic sites Social History Tobacco Use Types Packs/Day Years Used Date Smoking Tobacco: Never Passive Smoke Exposure: Never Smokeless Tobacco: Never Depression Answer Date Recorded Patient Health Questionnaire-9 Score 0 11/20/2024 Patient Health Questionnaire-9 Score 0 11/20/2024 Last PHQ-9: Questionnaire Data Not on file 0 11/20/2024 Housing Stability Answer Date Recorded What is [...] Date Recorded Patient Health Questionnaire-2 Score 0 11/20/2024 Internet Access Answer Date Recorded Internet Access Q1 Yes 08/07/2024 Internet Access Q2 Not on file 08/07/2024 Sex and Gender Information Value Date Recorded Sex Assigned at Male 01/18/2022 10:17 AM EDT Legal Sex Male 10:17 AM EDT Gender Identity Male 01/18/2022 10:17 AM EDT Sexual Orientation Choose not to disclose 2021 10:17 AM EDT documented as of this encounter Last Filed Vital Signs Vital Sign Reading Time Taken Comments Blood Pressure 110/66 11/29/2024 11:15 AM EDT Pulse 96 11/29/2024 11:15 AM EDT Temperature 37.2 C (98.9 F) 11/29/2024 11:15 AM EDT Respiratory Rate 20 11/29/2024 11:15 AM EDT Oxygen Saturation 98% 11/29/2024 11:15 AM EDT Inhaled Oxygen Concentration - - Weight 107 kg (235 lb) 11/29/2024 11:15 AM EDT Height 170.2 cm (5' 7 ) 11/29/2024 11:15 AM EDT Body Mass Index 36.81 11/29/2024 11:15 AM EDT documented in this encounter Progress Notes * Candido Camara MD - 11/29/2024 11:00 AM EDT SUBJECTIVE Robbin Bernstein Olman Castilloacho is a 43 y.o. male who presents for No chief complaint on file.. Douglas Olman Chairez, 43 years HPI Review of Systems Constitutional: Negative for fever. HENT: Negative for sore throat. Respiratory: Negative for cough and shortness of breath. Cardiovascular: Negative for chest pain. Gastrointestinal: Negative for abdominal pain. Neurological: Negative for headaches. Allergies[1] OBJECTIVE Vitals: 11/29/24 1115 BP: 110/66 BP Location: Left arm Patient Position: Standing BP Cuff Size: Adult Pulse: 96 Resp: 20 Temp: 98.9 ??F (37.2 ??C) TempSrc: Oral SpO2: 98% Weight: 235 lb (107 kg) Height: 5' 7 (1.702 m) Physical Exam Vitals reviewed. Constitutional: Appearance: Normal appearance. HENT: Head: Normocephalic and atraumatic. Right Ear: External ear normal. Left Ear: External ear normal. Nose: Nose normal. Mouth/Throat: Mouth: Mucous membranes are moist. Eyes: Conjunctiva/sclera: Conjunctivae normal. Cardiovascular: Rate and Rhythm: Normal rate and regular rhythm. Pulmonary: Effort: Pulmonary effort is normal. Breath sounds: Normal breath sounds. Skin: General: Skin is warm. Neurological: Mental Status: He is alert. Mental status is at baseline. Assessment/Plan Problem List Items Addressed This Visit Hospital discharge follow-up - Primary Pt here for a HDF Admitted to [facility] 10/02-10/15/2024 after he presented with fevers and rigors as well as increase purulent discharge from sacral coccygeal wounds. He is followed by wound care and ID with daily dressing changes, had CTA revealing fistulous tracts between rectum and sacral ulcer, no signs of acute osteomyelitis atthat time. While in the hospital had an EKG that showed A.fib with RVR and leukocytosis (16.4). U/A with positive nitrate. CT abdomen ashowed: worsening edema around sacral decubitus ulcer with a possible fistula tract extending from the posterior rectum into the ulcer which was present on prior studies but no abcess. MRI 10/06 extensive changes, scarring , hyperenhancement, multiple fluid collections in the subcutaneous fat posterior to the sacrum and in both gluteal regions contiguous with a low posteriorly directed proctoscopy cutaneous fistula. The cocxys and distal aspects of S3 are absent with contiguous enh ancement and edema in the posterior sacrum that extends to the lower spinal canal concerning for associated osteomyelitis and dural infection/inflammation While in the hospital patient was evaluated by Colorectal surgeon and ID Pt had an I&D by surgery 10/07 Cx gre: pseudomonas Initially treated with Cefepime +Flagyl+Linezolid, subsequently switched to Meropenem + Linezolid PICC line placed 10/10/2024. Recommended Abx duration 3 weeks End date 10/27/2024 Or until MRI repeated. Weekly CBC, CMP Pt tells me he had a repeat MRI pelvis and was told that it looked better but still decided to prolong his antibiotic regimen until the end of October. Pt's PICC line was removed and he finished allantibiotics Pt will continue to follow with wound clinic and surgical team Relevant Orders CBC auto differential (Completed) Urinalysis, Complete, with Reflex to Culture Paroxysmal atrial fibrillation (CMS/HCC) Back to NSR with frequent PACs, ECHO done in hospital EF preserved Per DC summary NO indication for anticoagulant as of discharge [id number] Outpatient follow up with cardiology recommended Continue Metoprolol 25 mg po daily Relevant Medications metoprolol tartrate (Lopressor) 25 MG tablet Pressure ulcers of skin of multiple topographic sites 42-year-old paraplegic male with multiple ulcers Patient has multiple pressure ulcers: Pt here for a HDF Admitted to [facility] 10/02-10/15/2024 after he presented with fevers and rigors as well as increase purulent discharge from sacral coccygeal wounds. He is followed by wound care and ID with daily dressing changes, had CTA revealing fistulous tracts between rectum and sacral ulcer, no signs of acute osteomyelitis atthat time. While in the hospital had an EKG that showed A.fib with RVR and leukocytosis (16.4). U/A with positive nitrate. CT abdomen ashowed: worsening edema around sacral decubitus ulcer with a possible fistula tract extending from the posterior rectum into the ulcer which was present on prior studies but no abcess. MRI 10/06 extensive changes, scarring , hyperenhancement, multiple fluid collections in the subcutaneous fat posterior to the sacrum and in both gluteal regions contiguous with a low posteriorly directed proctoscopy cutaneous fistula. The cocxys and distal aspects of S3 are absent with contiguous enh ancement and edema in the posterior sacrum that extends to the lower spinal canal concerning for associated osteomyelitis and dural infection/inflammation While in the hospital patient was evaluated by Colorectal surgeon and ID Pt had an I&D by surgery 10/07 Cx gre: pseudomonas Initially treated with Cefepime +Flagyl+Linezolid, subsequently switched to Meropenem + Linezolid PICC line placed 10/10/2024. Recommended Abx duration 3 weeks End date 10/27/2024 Or until MRI repeated. Weekly CBC, CMP Pt tells me he had a repeat MRI pelvis and was told that it looked better but still decided to prolong his antibiotic regimen until the end of October. Pt's PICC line was removed and he finished allantibiotics Pt will continue to follow with wound clinic and surgical team Getting dressings at [facility] 2 weeks ago 11/12/2024 and has a follow up tomorrow This note was drafted using Ambient (AI) technology. The patient/patient's guardian has been informed and has consented to the use of this technology: Yes Future Appointments Date Time Provider Department Center 01/31/2025 11:30 AM Candido Camara MD [facility] [1] No Known Allergies documented in this encounter Miscellaneous Notes * Assessment & Plan Note - Candido Camara MD - 11/29/2024 11:41 AM EDT Associated Problem(s): Pressure ulcers of skin of multiple topographic sites 42-year-old paraplegic male with multiple ulcers Patient has multiple pressure ulcers: Pt here for a HDF Admitted to [facility] 10/02-10/15/2024 after he presented with fevers and rigors as well as increase purulent discharge from sacral coccygeal wounds. He is followed by wound care and ID with daily dressing changes, had CTA revealing fistulous tracts between rectum and sacral ulcer, no signs of acute osteomyelitis atthat time. While in the hospital had an EKG that showed A.fib with RVR and leukocytosis (16.4). U/A with positive nitrate. CT abdomen ashowed: worsening edema around sacral decubitus ulcer with a possible fistula tract extending from the posterior rectum into the ulcer which was present on prior studies but no abcess. MRI 10/06 extensive changes, scarring , hyperenhancement, multiple fluid collections in the subcutaneous fat posterior to the sacrum and in both gluteal regions contiguous with a low posteriorly directed proctoscopy cutaneous fistula. The cocxys and distal aspects of S3 are absent with contiguous enh ancement and edema in the posterior sacrum that extends to the lower spinal canal concerning for associated osteomyelitis and dural infection/inflammation While in the hospital patient was evaluated by Colorectal surgeon and ID Pt had an I&D by surgery 10/07 Cx gre: pseudomonas Initially treated with Cefepime +Flagyl+Linezolid, subsequently switched to Meropenem + Linezolid PICC line placed 10/10/2024. Recommended Abx duration 3 weeks End date 10/27/2024 Or until MRI repeated. Weekly CBC, CMP Pt tells me he had a repeat MRI pelvis and was told that it looked better but still decided to prolong his antibiotic regimen until the end of October. Pt's PICC line was removed and he finished allantibiotics Pt will continue to follow with wound clinic and surgical team Getting dressings at [facility] 2 weeks ago 11/12/2024 and has a follow up tomorrow * Assessment & Plan Note - Candido Camara MD - 11/29/2024 11:28 AM EDT Associated Problem(s): Paroxysmal atrial fibrillation (CMS/HCC) Back to NSR with frequent PACs, ECHO done in hospital EF preserved Per DC summary NO indication for anticoagulant as of discharge [id number] Outpatient follow up with cardiology recommended Continue Metoprolol 25 mg po daily * Assessment & Plan Note - Candido Camara MD - 11/29/2024 11:28 AM EDT Associated Problem(s): Hospital discharge follow-up Pt here for a HDF Admitted to [facility] 10/02-10/15/2024 after he presented with fevers and rigors as well as increase purulent discharge from sacral coccygeal wounds. He is followed by wound care and ID with daily dressing changes, had CTAP6/18 revealing fistulous tracts between rectum and sacral ulcer, no signs of acute osteomyelitis atthat time. While in the hospital had an EKG that showed A.fib with RVR and leukocytosis (16.4). U/A with positive nitrate. CT abdomen ashowed: worsening edema around sacral decubitus ulcer with a possible fistula tract extending from the posterior rectum into the ulcer which was present on prior studies but no abcess. MRI 10/06 extensive changes, scarring , hyperenhancement, multiple fluid collections in the subcutaneous fat posterior to the sacrum and in both gluteal regions contiguous with a low posteriorly directed proctoscopy cutaneous fistula. The cocxys and distal aspects of S3 are absent with contiguous enh ancement and edema in the posterior sacrum that extends to the lower spinal canal concerning for associated osteomyelitis and dural infection/inflammation While in the hospital patient was evaluated by Colorectal surgeon and ID Pt had an I&D by surgery 10/07 Cx gre: pseudomonas Initially treated with Cefepime +Flagyl+Linezolid, subsequently switched to Meropenem + Linezolid PICC line placed 10/10/2024. Recommended Abx duration 3 weeks End date 10/27/2024 Or until MRI repeated. Weekly CBC, CMP Pt tells me he had a repeat MRI pelvis and was told that it looked better but still decided to prolong his antibiotic regimen until the end of October. Pt's PICC line was removed and he finished allantibiotics Pt will continue to follow with wound clinic and surgical team documented in this encounter Plan of Treatment Upcoming Encounters Date Type Department Care Team (Late st Contact Info) Description 01/31/2025 11:30 AM EST Office Visit [facility] [address] [place] [address] Candido Lozano MD [address] [place], [place] [phone] Scheduled Orders Name Type Priority Associated Diagnoses Orde r Schedule Urinalysis, Complete, with Reflex to Culture Lab Routine Hospital discharge follow-up Expected: 11/29/2024 (Approximate), Expires: 11/29/2025 documented as of this encounter Procedures Procedure Name Priority Date/Time Associated Diagnosis Comments CBC WITH AUTO DIFFERENTIAL Routine 11/29/2024 12:03 PM EDT Hospital discharge follow-up documented in this encounter Results * (ABNORMAL) CBC auto differential (11/29/2024 12:03 PM EDT) White Blood Count 16.6(H) 4.8 - 10.8 X10*3/uL [facility] Red Blood Count 5.40 4.60 - 5.80 X10*6/uL [facility] Hemoglobin 11.0(L) 14.0 - 18.0 g/dl [facility] Hematocrit 36.2(L) 42.0 - 52.0 % [facility] Mean Corpuscular Volume 67.0(L) 80.0 - 98.0 fL [facility] Mean Corpuscular Hemoglobin 20.4(L) 27.0 - 33.0 pg [facility] Mean Corpuscular HGB Conc 30.4(L) 31.0 - 36.0 g/dl [facility] Red Cell Distribution Width 21.8(H) 11.0 - 16.0 % [facility] Platelet Count 454(H) 160 - 400 X10*3/uL [facility] Mean Platelet Volume 9.0(L) 9.4 - 12.4 fL [facility] Neutrophils Percent Auto 72.9 45 - 73 % [facility] Imm Gran Pct Auto 0.7(H) 0.0 - 0.4 % [facility] Lymphocytes Percent Auto 15.2(L) 20 - 40 % [facility] Monocytes Percent Auto 7.2 2 - 11 % [facility] Eosinophils Percent Auto 3.6 0 - 4 % [facility] Basophils Percent Auto 0.4 0 - 2 % [facility] NRBC Pct Auto 0.0 0.0 - 0.2 /100WBC [facility] Neutrophils Absolute Auto 12.1(H) 2.0 - 8.3 x10*3/uL [facility] Imm Gran Abs Auto 0.11(H) 0.00 - 0.03 X10*3/uL [facility] Lymphocytes Absolute Auto 2.5 1.2 - 4.9 X10*3/uL [facility] Monocytes Absolute Auto 1.2 0.1 - 1.2 X10*3/uL [facility] Eosinophils Absolute Auto 0.6(H) 0.0 - 0.4 X10*3/uL [facility] Basophils Absolute Auto 0.1 0.0 - 0.2 X10*3/uL [facility] NRBC Abs Auto 0.000 0.0 - 0.012 X10*3/uL [facility] Blood Venous blood specimen / Unknown 11/29/2024 12:03 PM EDT 11/29/2024 1:03 PM EDT Candido Camara MD LAB BLOOD ORDERABLES Final Result [facility] [address] [place] [address] [phone] documented in this encounter Visit Diagnoses Diagnosis Hospital discharge follow-up- Primary Other follow-up examination Paroxysmal atrial fibrillation (CMS/HCC) Atrial fibrillation Pressure ulcers of skin of multiple topographic sites documented in this encounter Additional Health Concerns Assessment Noted Time PHQ-9 Depression Total Score: 0 11/21/19 25 2:07 PM EDT documented as of this encounter Care Teams Lead Software Architect Relationship Specialty Start Date End Date Candido Lozano MD [address] [place] [address] PCP - General Internal Medicine 12/13/13 Vincent Lundberg 10/02/24 Emile Lundberg, RN [address] [place] [id number] Registered Nurse Family Medicine 11/06/24 Brittany Wong Dry Transfer [employer] 03/08/24 [facility] 10/12/24 documented as of this encounter
[2024-11-29 13:07] LABS: MANUAL DIFF FLAG NO
[2024-11-29 13:25] LABS: Hematocrit 36.2 % (42.0-52.0); Hemoglobin 11.0 g/dl (14.0-18.0); Imm Gran Abs Auto 0.11 X10*3/uL (0.00-0.03); Imm Gran Pct Auto 0.7 % (0.0-0.4); Lymphocytes Absolute Auto 2.5 X10*3/uL (1.2-4.9); Mean Corpuscular HGB Conc 30.4 g/dl (31.0-36.0); Mean Corpuscular Hemoglobin 20.4 pg (27.0-33.0); Mean Corpuscular Volume 67.0 fL (80.0-98.0); NRBC Abs Auto 0.000 X10*3/uL (0.0-0.012); NRBC Pct Auto 0.0 /100WBC (0.0-0.2); Platelet Count 454 X10*3/uL (160-400); Red Blood Count 5.40 X10*6/uL (4.60-5.80); White Blood Count 16.6 X10*3/uL (4.8-10.8)
--- OUTSIDE RECORDS SUMMARY | 2024-11-29 16:17 | XMS_ITS | Encounter Summary ---
Author Organization [employer] Address [address]t [place] [address] Care Team Providers Care Safety Council Director Name Role Phone Candido Lozano MD Primary Care Provide r Vincent Lundberg Unavailable Emile Lundberg RN Unavailable [phone] Reason for Visit * Reason Onset Date Comments Durable Medical Equipment 11/29/2024 Encounter Details Date Type Department Care Team (Late st Contact Info) Description 11/29/2024 Telephone [facility] [address] [place], [place] [phone] Candido Lozano MD [address] [place], [place] [phone] Durable Medical Equipment Social History Tobacco Use [...] encounter Miscellaneous Notes * Telephone Encounter - Komal Curtis RN - 11/29/2024 1:41 PM EDT DME requested by pt at PCP visit today: washable bed pads. Previous scripts for disposable bedpads from 08/2024 and 06/2024. Script generated and placed on PCP desk for review. Pt also asking for wound care supplies: [employer] Dressing Retention Sheet Item #[id number], 2inches x11yrd. Will send to DME specialist. documented in this encounter Plan of Treatment Upcoming Encounters Date Type Department Care Team (Late st Contact Info) Description 01/31/2025 11:30 AM EST Office Visit [facility] [address] [place] [address] Candido Lozano MD [address] [place] [address] documented as of this encounter Visit Diagnoses Not on filedocumented in this encounter Additional Health Concerns Assessment Noted Time PHQ-9 Depression Total Score: 0 11/21/19 25 2:07 PM EDT documented as of this encounter Care Teams Safety Council Director Relationship Specialty Start Date End Date Candido Lozano MD [address] [place] [address] PCP - General Internal Medicine 12/13/13 Vincent Lundberg 10/02/24 Emile Lundberg, RN [address] [place] [phone] Registered Nurse Family Medicine 11/06/24 Brittany Wong Sorter OperatorLegal Transcriptionist 03/08/24 [facility] 10/12/24 documented as of this encounter
--- OUTSIDE RECORDS SUMMARY | 2024-11-29 16:17 | XMS_ITS | Encounter Summary ---
Author Organization [employer] [facility] Address [address]t [place] [address] Care Team Providers Care Laser Systems Engineer Name Role Phone Candido Lozano MD Primary Care Provide r Keerthi Rahman RN Unavailable [phone] Vincent Lundberg Unavailable Emile Lundberg RN Unavailable [phone] Reason for Visit * Reason Onset Date Comments Durable Medical Equipment 06/02/2022 Encounter Details Date Type Department Care Team (Late st Contact Info) Description 06/02/2022 Telephone [facility] [address] [place], [place] [phone] Candido Lozano MD [address] [place], [place] [phone] Durable Medical Equipment Social History Tobacco Use [...] 06/07/2022 10:42 AM EDT Called Brittany from [facility] gave her all the info [...] the bed was pd for. So Mame Brown from [facility] store stated pt will receive his bed today or tomorrow latest. Any question [facility] phone number is [phone] * Telephone Encounter - Omer Hartley - 06/02/2022 2:47 PM EDT Tc from [facility] with [facility] requesting a script for a hospital bed to be send [facility] Please contact Brittany at [phone] documented in this encounter Plan of Treatment Upcoming Encounters Date Type Department Care Team (Late st Contact Info) Description 01/31/2025 11:30 AM EST Office Visit [facility] [address] [place] [address] Candido Lozano MD [address] [place] [address] documented as of this encounter Visit Diagnoses Not on filedocumented in this encounter Care Teams Laser Systems Engineer Relationship Specialty Start Date End Date Candido Lozano MD [address] [place] [address] PCP - General Internal Medicine 12/13/13 Keerthi Rahman RN [address] [place] [address] Registered Nurse Family Medicine 10/02/24 11/06/24 Vincent Lundberg 10/02/24 Emile Lundberg RN [address] [place] [address] [place] [address] Registered Nurse Family Medicine 11/06/24 Brittany Wong Ballet DancerDriver Merchandiser 03/08/24 [facility] 10/12/24 documented as of this encounter
--- OUTSIDE RECORDS SUMMARY | 2024-11-29 16:17 | XMS_ITS | Encounter Summary ---
Author Organization [employer] Address [address] [place] [address] Care Team Providers Care Brew House Supervisor Name Role Phone Candido Lozano MD Primary Care Provide r Vincent Lundberg Unavailable Emile Lundberg RN Unavailable [phone] Encounter Details Date Type Department Care Team (Latest Contact Info) Description 11/29/2024 Travel Social History Tobacco Use Types Packs/Day Years [...] Description 01/31/2025 11:30 AM EST Office Visit [facility] [address] [place] [address] Candido Lozano MD [address] [place] [address] documented as of this encounter Visit Diagnoses Not on filedocumented in this encounter Additional Health Concerns Assessment Noted Time PHQ-9 Depression Total Score: 0 11/21/19 2:07 PM EDT documented as of this encounter Care Teams Brew House Supervisor Relationship Specialty Start Date End Date Candido Lozano MD [address] [place] [address] PCP - General Internal Medicine 12/13/13 Vincent Lundberg 10/02/24 Emile Lundberg, RN [address] [place] [phone] Registered Nurse Family Medicine 11/06/24 Brittany Wong Bath Steward/StewardessServer Security Administrator 03/08/24 [facility] 10/12/24 documented as of this encounter
--- OUTSIDE RECORDS SUMMARY | 2024-11-29 16:17 | XMS_ITS | Encounter Summary ---
Author Organization [facility] Address [address] [place] [address] Phone Care Team Providers Care Manufacturer Agent Name Role Phone Unavailable Primary Care Provider Unavailabl e Encounter Details Date Type Department Care Team (Late st Contact Info) Description 01/21/2020 Ancillary Orders [facility] [address] [place] [address] Komal Arvizu PA [address] [place] [address] [email or web address] Social History Tobacco Use Types Packs/Day [...] It is not the complete legal health record.[facility]
--- OUTSIDE RECORDS SUMMARY | 2024-11-29 16:17 | XMS_ITS | Clinical Summary ---
Author Organization [employer] Address [address] [facility] 7t [place] [address] Care Team Providers Care Flatwork Folder Name Role Phone Candido Lozano MD Primary Care Provide r Vincent Lundberg Unavailable Emile Lundberg RN Unavailable [phone] Allergies No known active allergies Medications amLODIPine (Norvasc) 5 MG tablet Take 1 tablet by mouth at bed time. 07/10/19 22 Active potassium citrate CR (Urocit-K-10) 10 mEq ER tablet Take 2 tablets by mouth in the morning and 2 tablets in the evening. 07/10/19 22 Active tolterodine LA (Detrol LA) 4 MG 24 hr capsule Take 1 capsule by mouth at bed time. 07/10/19 22 Active Aspirin Low Dose 81 MG chewable tablet 08/23/19 23 Active loperamide (Imodium) 2 MG capsule TAKE 1 CAPSULE BY MOUTH AFTER 1ST LOOSE STOOL & 1 CAP AFTER EACH SUBSEQUENT LOOSE STOOL, MAX 8/DAY 11/13/19 22 Active sulfamethoxazo le-trimethopri m (Bactrim) 400-80 MG tablet 10/16/19 23 Active simethicone (Mylicon) 80 MG chewable tablet TAKE 1 TABLET BY MOUTH THREE TIMES A DAY BEFORE MEALS NEEDED 90 tablet 6 03/26/19 25 Active metoprolol tartrate (Lopressor) 25 MG tablet Take 25 mg by mouth 1 (one) time. 10/17/19 23 Active metoprolol tartrate (Lopressor) 25 MG tablet Take 1 tablet by mouth every 12 (twelve) hours. 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 He is followed by wound care and ID with daily dressing changes, had CTAP 09/05 revealing fistulous tracts between rectum and sacral ulcer, no signs of acute osteomyelitis at that time. While in the hospital had an [...] aspects of S3 are absent with contiguous enhancement and edema in the posterior sacrum that [...] PICC line was removed and he finished all antibiotics Pt will continue to follow with wound clinic and surgical team Getting dressings at [facility] 2 weeks ago 11/12/2024 and has a follow up tomorrow Assessment & Plan (08/07/2024 1:37 PM EDT): 42-year-old paraplegic male with multiple ulcers Patient will continue to follow the recommendations from [facility] wound center Last seen 07/03/2024, Patient missed appointment July 25, Recommended Roho cushion for wheelchair which he has. Patient has multiple pressure ulcers: 1.-Left Perineum 2.-Sacrum 3.-Right posterior upper leg: perical calcium alginate gauze 4.-Midline Coccyx; impregnated dresssing 5.-Left proximal perineum 6.-Right Trocanter Getting collagen dressings at [facility]. Seen by Pasquale and Dr Harden Per wound clinic he should be doing daily dressing changes for all 6 wounds I was able to make an appointment for patient for tomorrow at 3: 15 PM Hospital discharge follow-up 04/19/2024 Assessment & Plan (11/29/2024 3:37 PM EDT): Pt here for a HDF Admitted to [facility] 10/02-10/15/2024 after he presented with fevers and rigors as well as increase purulent discharge from sacral coccygeal wounds. He is followed by wound care and ID with daily dressing changes, had CTAP 09/05 revealing fistulous tracts between rectum and sacral ulcer, no signs of acute osteomyelitis at that time. While in the hospital had an [...] aspects of S3 are absent with contiguous enhancement and edema in the posterior sacrum that [...] PICC line was removed and he finished all antibiotics Pt will continue to follow with wound clinic and surgical team Assessment & Plan (04/19/2024 2:03 PM EST): Pt here for a HDF Admitted to [facility] 03/25/2024 He presented to the emergency room [...] was last seen by ID 04/11/2024 at [facility] I was able to schedule an appointment for him for Tuesday04/23/2024 at 10:15 AM Routine physical examination 07/05/2023 Assessment & Plan (08/07/2024 1:37 PM EDT): Aside from his baseline and multiple pressure ulcers ,Within normal limits Assessment & Plan (07/05/2023 10:53 AM EDT): Within normal limits Poor dentition 12/01/2022 Overview (12/01/2022): Needs crown Was evaluated about 1 year ago at [facility], no dental accessible chairs Needs assistance getting into dental chair Assessment & Plan (12/01/2022 7:11 PM EDT): Will task MA to contact [facility] dental and verify there are no accessible [...] intestines and surrounding skin. Had appt with [facility] Surgery 09/06/22 Dr. Ball. Pending surgery. No [...] Self cath. s/p Colostomy placed. released from residential July 23, 2013 after 1.5 years. 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 Crenshaw Pt was seen at [facility] on 10/25/2011 and on 11/26/2011 after he [...] Self cath. s/p Colostomy placed. released from residential July 23, 2013 after 1.5 years. On probation. 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 Crenshaw Pt was seen at [facility] on 10/25/2011 and on 11/26/2011 after he [...] Self cath. s/p Colostomy placed. released from residential July 23, 2013 after 1.5 years. On probation. 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 Crenshaw Pt was seen at [facility] on 10/25/2011 and on 11/26/2011 after he [...] will continue to follow the recommendations from [facility] wound center for daily soap and water [...] Encounters Date Type Department Care Team Description 11/29/2024 11:00 AM EDT Office Visit [address] [address] Candido Lozano MD Hospital discharge follow-up (Primary Dx); Paroxysmal atrial fibrillation (CMS/HCC); Pressure ulcers of skin of multiple topographic sites 11/29/[address] [address] Candido Lozano MD Durable Medical Equipment 11/29/2024 Travel 11/28/2024 Telephone [facility] [address] [place] [address] Marely Pavon MA 11/21/2024 Plan of Care Documentation [address] [address] 11/20/2024 Results Follow-Up [address] [address] Candido Lozano MD Comprehensive Metabolic Panel, TSH with Reflex to Free T4, CBC auto differential 11/20/2024 Patient Outreach [address] [address] Candido Lozano MD Care Management (C3CM- initial assessment/ enrollment) 11/16/2024 Patient Outreach [address] [address] Vincent Lundberg Care Coordination ( C3CM/CHW Vincent Lundberg, Appt reminder ) 11/15/[address] [address] Candido Lozano MD Appointment Confirmation 11/06/2024 Patient Outreach [facility] [place] [address] Candido Lozano MD 11/06/2024 Patient Outreach [facility] [place] [address] Candido Lozano MD 11/06/2024 Patient Outreach [facility] [address] [place] [address] Candido Lozano MD Care Coordination (C3CM/CHW Vincent Lundberg, Initial assessment scheduled ) 10/29/2024 Telephone [facility] [place] [address] Candido Lozano MD Durable Medical Equipment 10/25/2024 Orders Only [facility] [place] [address] Candido Lozano MD Neurogenic bladder (Primary Dx) 10/24/2024 Telephone [facility] [place] [address] Candido Lozano MD Referral 10/18/2024 Patient Outreach [facility] [place] [address] Candido Lozano MD Care Coordination (Call Bck Request- [facility]) 10/15/2024 Patient Outreach [facility] [place] [address] Candido Lozano MD Transition Of Care (Tcm) (HDF unscheduled) 10/12/2024 Patient Outreach [facility] [place] [address] Candido Lozano MD 10/10/2024 Patient Outreach [facility] [place] [address] Candido Lozano MD Care Coordination (C3CM/CHW Vincent Lundberg, TC #3 outreach for enrollment) 10/09/2024 Telephone [facility] MEDICINE [address] [place], [place] [address] Candido Lozano MD Verbal Order 10/09/2024 Telephone [facility] MEDICINE [address] [place] [address] Candido Lozano MD Durable Medical Equipment 10/08/2024 Patient Outreach [facility] [address] [place] [address] Candido Lozano MD 10/05/2024 Patient Outreach [facility] [address] [place] [address] Candido Lozano MD Care Coordination (C3/CHW Vincent Lundberg, TC #2 initial outreach_patient admitted ) 10/02/2024 Patient Outreach [facility] [address] [place] [address] Candido Lozano MD 10/02/2024 Patient Outreach [address] [address] Vincent Lundberg Care Coordination (C3/CHW Vincent Lundberg, initial outreach attempt_lvm) 10/02/2024 Patient Outreach [facility] MED[facility]INE [address] [place] [address] Candido Lozano MD Care Coordination (C3/W Vincent Lundberg, Chart review ) 10/02/2024 Patient Outreach [facility] [address] [place] [address] Candido Lozano MD Care Coordination (Chart review) 10/02/2024 Patient Outreach [facility] [address] [place] [address] Candido Lozano MD 09/07/2024 Telephone [facility] MEDICINE [address] [place] [address] Candido Lozano MD Durable Medical Equipment 09/04/2024 Telephone [facility] MED[facility]INE [address] [place] [address] Candido Lozano MD Referral 09/03/2024 Telephone [facility] [address] [place] [address] Candido Lozano MD Care Coordination 09/03/2024 Telephone [facility] [address] [facility] [place] [place] [address] Candido Lozano MD Durable Medical Equipment 08/30/2024 Telephone [facility] [address] [facility] [place] [place], [place] [address] Candido Lozano MD Durable Medical Equipment from Last 3 Months Immunizations Immunization Administration [...] the past 12 months, has t he [employer], [employer], oil or water [employer] threatened to shut off services in your [...] Mass Index 36.81 11/29/2024 11:15 AM EDT Plan of Treatment Upcoming Encounters Date Type Department Care Team (Late st Contact Info) Description 01/31/2025 11:30 AM EST Office Visit [facility] [address] [place] [address] Candido Lozano MD [address] [place] [address] Health Maintenance Due Date Last Done Comments HIV Screening 1980 Family Planning (PISQ) 12/16/1994 HPV Vaccines (1 - Male 3-dose series) 12/16/1994 Hepatitis C Screening 12/16/1997 Hepatitis B Vaccines (1 of 3 - 19+ 3-dose series) 12/16/1998 Dental Oral Exam 12/19/2021 06/17/2021, 03/31/2016 Dental Prophylaxis 12/19/2021 06/17/2021 Dental X-Ray: Bitewings 06/18/2022 06/17/2021, 03/31 Dental X-Ray: Full Mouth 06/18/2024 06/17/2021, 03/21 COVID-19 Vaccine ( season) 2024 04/14/2021, 08/08/2020, 07/17/2020 Influenza Vaccine (#1) 2024 9, 01/11/2019, 12/27/2017, Additional history exists DTaP/Tdap/Td Vaccines (2 - Td or Tdap) 2024 2014 Alcohol/Substance Use Screening 08/07/2025 08/07/2024 Disability Screening 08/07/2025 08/07/2024 SDOH Screening 08/07/2025 08/07/2024 Depression Screening 11/20/2025 11/20/2024, 11/21/19 Tobacco Screening 11/29/2025 11/29/2024 Lipid Panel 04/16/2029 04/16/2024, 07/01/2021 Zoster Vaccines [...] 11/29/2024 12:03 PM EDT Hospital discharge follow-up CBC WITH AUTO DIFFERENTIAL Routine 11/14/2024 10:51 AM EDT Essential hypertension TSH W/REFLEX TO FT4 Routine 11/14/2024 1 0:51 AM EDT Essential hypertension COMPREHENSIVE METABOLIC PANEL Routine 11/14/2024 10:51 AM EDT Essential hypertension LIPID PANEL, STANDARD Routine 04/16/2024 9:40 AM EST Essential hypertension PROPHYLAXIS - ADULT Routine 06/17/2021 1 2:00 AM EDT INTRAORAL - COMPLETE SERIES OF RADIOGRAPHIC IMAGES Routine 06/17/2021 12:00 AM EDT PERIODIC ORAL EVALUATION - ESTABLISHED PATIENT Routine 06/17/2021 12:00 AM EDT from Last 3 Months or Most Recently Relevant to Health Maintenance Results * (ABNORMAL) CBC auto differential (11/29/2024 12:03 PM EDT) Only the most recent of2 resultswithin the time period is included. White Blood Count 16.6(H) 4.8 - 10.8 X10*3/uL [facility] Red Blood Count 5.40 4.60 - 5.80 X10*6/uL [facility] Hemoglobin 11.0(L) 14.0 - 18.0 g/dl [facility] Hematocrit 36.2(L) 42.0 - 52.0 % [facility] Mean Corpuscular Volume 67.0(L) 80.0 - 98.0 fL [facility] Mean Corpuscular Hemoglobin 20.4(L) 27.0 - 33.0 pg [facility] Mean Corpuscular HGB Conc 30.4(L) 31.0 - 36.0 g/dl [facility] Red Cell Distribution Width 21.8(H) 11.0 - 16.0 % [facility] Platelet Count 454(H) 160 - 400 X10*3/uL [facility] Mean Platelet Volume 9.0(L) 9.4 - 12.4 fL [facility] Neutrophils Percent Auto 72.9 45 - 73 % [facility] Imm Gran Pct Auto 0.7(H) 0.0 - 0.4 % [facility] Lymphocytes Percent Auto 15.2(L) 20 - 40 % [facility] Monocytes Percent Auto 7.2 2 - 11 % [facility] Eosinophils Percent Auto 3.6 0 - 4 % [facility] Basophils Percent Auto 0.4 0 - 2 % [facility] NRBC Pct Auto 0.0 0.0 - 0.2 /100WBC [facility] Neutrophils Absolute Auto 12.1(H) 2.0 - 8.3 x10*3/uL [facility] Imm Gran Abs Auto 0.11(H) 0.00 - 0.03 X10*3/uL [facility] Lymphocytes Absolute Auto 2.5 1.2 - 4.9 X10*3/uL [facility] Monocytes Absolute Auto 1.2 0.1 - 1.2 X10*3/uL [facility] Eosinophils Absolute Auto 0.6(H) 0.0 - 0.4 X10*3/uL [facility] Basophils Absolute Auto 0.1 0.0 - 0.2 X10*3/uL [facility] NRBC Abs Auto 0.000 0.0 - 0.012 X10*3/uL [facility] Blood Venous blood specimen / Unknown 11/29/2024 12:03 PM EDT 11/29/2024 1:03 PM EDT us Candido Camara MD LAB BLOOD ORDERABLES Final Result [facility] [address] [place], [place] [phone] * TSH with Reflex to Free T4 (11/14/2024 10:51 AM EDT) TSH reflex Free T4 1.22 0.32 - 4.0 uIU/mL [facility] Blood Venous blood specimen / Unknown 11/14/2024 10:51 AM EDT 11/14/2024 1:04 PM EDT Candido Camara MD LAB BLOOD ORDERABLES Final Result [facility] [address] [place] [address] [phone] * (ABNORMAL) Comprehensive Metabolic Panel (11/14/2024 10:51 AM EDT) Sodium 140 135 - 145 mmol/L [facility] Potassium 3.8 3.3 - 5.1 mmol/L [facility] Chloride 104 96 - 108 mmol/L [facility] Carbon Dioxide 22 22 - 29 mmol/L [facility] Anion Gap 18 12 - 20 [facility] Urea Nitrogen (BUN) 10 9 - 16 mg/dL [facility] Creatinine, Serum 0.62 0.5 - 1.4 mg/dL [facility] Estimated Glomerular Filt Rate >60 [facility] Comment:Chronic Kidney Disea se: Estimated GFR < 60 mL/min/1.81m9Msysir Kidney Disease: Estimated GFR < 15 mL/min/1.73m2 Glucose 87 60 - 115 mg/dL [facility] Calcium 9.7 8.4 - 10.2 mg/dL [facility] Bilirubin, Total 0.8 0.0 - 1.0 mg/dL [facility] Aspartate Amino Transferase 36 5 - 37 U/L [facility] Alanine Aminotransferase 25 0 - 40 U/L [facility] Total Protein 8.9(H) 6.5 - 8.0 g/dL [facility] Albumin Level 3.9 3.5 - 5.0 g/dL [facility] Alkaline Phosphatase 110 39 - 117 U/L [facility] Blood Venous blood specimen / Unknown 11/14/2024 10:51 AM EDT 11/14/2024 1:04 PM EDT Candido Camara MD LAB BLOOD ORDERABLES Final Result Performing Organization Address [facility] Co de Phone Number [facility] [address] [place] [address] [phone] * (ABNORMAL) Lipid Panel, Standard (04/16/2024 9:40 AM EST) Triglycerides 82 <150 mg/dL [facility] Comment:Desirable Triglyceri de: less than 150 mg/dLBorderline High Triglyceride 150-199 mg/dLHigh Triglyceride: 200-499 mg/dLVery High Triglyceride: greater than or equal to 5OO mg/dL Cholesterol 143 <200 mg/dL [facility] Comment:Desirable Cholestero l: less than 200 mg/dLBorderline High Cholesterol: 200-239 mg/dLHigh Cholesterol: greater than 239 mg/dL LDL Cholesterol Calculated 88 <100 mg/dL [facility] Comment:Desirable LDL: less than 100 mg/dLNear Optimal/Above Optimal LDL: 110- 129 mg/dLBorderline High LDL: 130-159 mg/dLHigh LDL: 160-189 mg/dLVery High LDL: greater than or equal to 190 mg/dL HDL Cholesterol 39(L) >40 mg/dL [facility] Comment:Desirable HDL: great er than 40 mg/dL Note: This HDL assay may give artificially low results in patients with liver disease. Blood Venous blood specimen / Unknown 04/16/2024 9:40 AM EST 04/16/2024 11:25 AM EST us Candido Camara MD LAB BLOOD ORDERABLES Final Result Performing Organization Address [facility]/ZIP Co de Phone Number [facility] [address] [place] [address] [phone] from Last 3 Months or Most Recently Relevant to Health Maintenance [place] [address] [address] [place] [address] C3 [facility] MEDICAID STAND ADULT Care Teams Flatwork Folder Relationship Specialty Start Date End Date Candido Lozano MD [address] [place] [phone] PCP - General Internal Medicine 12/13/13 Vincent Lundberg 10/02/24 Emile Lundberg RN [address] [place] [phone] Registered Nurse Family Medicine 11/06/24 Brittany Wong Fish Rod MakerInspector 03/08/24 [facility] 10/12/24
--- OUTSIDE RECORDS SUMMARY | 2024-11-29 16:17 | XMS_ITS | Encounter Summary ---
Author Organization [employer] Address [address] [place] [address] Care Team Providers Care Napper Grinder Name Role Phone Candido Lozano MD Primary Care Provide r Vincent Lundberg Unavailable Emile Lundberg RN Unavailable [phone] Encounter Details Date Type Department Care Team (Late st Contact Info) Description 11/28/2024 Telephone [facility] [address] [place] [address] Marely Pavon MA Social History Tobacco Use Types Packs/Day [...] encounter Miscellaneous Notes * Telephone Encounter - Marely Pavon MA - 11/28/2024 11:09 AM EDT Chart Prep Labs: done Images: not applicable Referrals: appt mar 29 at 3pm Vaccines due: Covid, Flu, Hep B, and HPV Screenings: HIV [place] Overdue care gaps: Not applicable documented in this encounter Plan of Treatment Upcoming Encounters Date Type Department Care Team ([facility] st Contact Info) Description 01/31/2025 11:30 AM EST Office Visit [facility] [address] [place] [address] Candido Lozano MD [address] [place] [address] documented as of this encounter Visit Diagnoses Not on filedocumented in this encounter Additional Health Concerns Assessment Noted Time PHQ-9 Depression Total Score: 0 11/21/19 2:07 PM EDT documented as of this encounter Care Teams Napper Grinder Relationship Specialty Start Date End Date Candido Lozano MD [address] [place] [address] PCP - General Internal Medicine 12/13/13 Vincent Lnudberg 10/02/24 Emile Lundberg RN [address] [place] [address] Registered Nurse Family Medicine 11/06/24 Brittany Wong High Pressure OperatorHealth Care Coordinator 03/08/24 [facility] 10/12/24 documented as of this encounter
--- OUTSIDE RECORDS SUMMARY | 2024-11-29 16:17 | XMS_ITS ---
Author Organization [facility] [facility] Address [address] [facility] [address]t [place] [address] Care Team Providers Care Windows Application Developer Name Role Phone Candido Lozano MD Primary Care Provide r Vincent Lundberg Unavailable Emile Lundberg RN Unavailable [phone] CM Complex Status:Enrolled (Active) Start date:10/02/2024 Enrollment date:11/20/2024 Enrollment reason:ADT Feed Overview ADT- admitted [facility] 10/02/24 Case Team Name Relationship Phone Emile Lundberg RN(Responsible Staff) Registered Nurse [phone] Continued Care and Services Coordination
--- OUTSIDE RECORDS SUMMARY | 2024-11-29 16:17 | XMS_ITS | Clinical Summary ---
Author Organization [facility] Address [address] [phone] Care Team Providers Care Value Stream Coach Name Role Phone Rodrigo Goodwin Primary Care Provider [phone] Allergies No known active allergies Medications amLODIPine [...] of 3 - 19+ 3-dose series) 12/16/1998 Alcohol/Substance Use Screening 03/21/2024 Depression Screening and Follow-Up 03/21/2024 Social Drivers of Health Annual Screening 03/21/2024 COVID-19 Vaccine ( - season) 2024 08/08/2020, 07/17/2020 Influenza Vaccine (#1) 2024 9, 12/27/2017, 02/05/2016, Additional history exists DTaP,Tdap,and Td Vaccines (2 - Td or Tdap) 2024 2014 RSV Vaccine (60+ years old and patients) (1 - 1-dose 75+ series) 12/16/2054 Pneumococcal Vaccine: Pediatric (0-5 Years) and At-Risk Patients (6-50 Years) Aged Out 01/28/2012, 01/08/2010 No longer eligibl e based on patient's age to complete this topic Insurance [employer] Advance Directives Healthcare Agents on File Name Relationship Healthcare Agent Relationship Communication Masha Chairez Mother Next of Kin Care Teams Value Stream Coach Relationship Specialty Start Date End Date Rodrigo Goodwin PA [address] [place] [address] E/R [place] [address] PCP - General Emergency Medicine 12/29/22
--- OUTSIDE RECORDS SUMMARY | 2024-11-29 16:17 | XMS_ITS | Encounter Summary ---
Author Organization [facility] Address [address] [place] [address] 7[address] [place] [address] Care Team Providers Care Paint Booth Operator Name Role Phone Candido Lozano MD Primary Care Provide r Keerthi Rahman RN Unavailable [phone] Vincent Lundberg Unavailable Emile Lundberg RN Unavailable [phone] Encounter Details Date Type Department Care Team (Latest Contact Info) Description 06/17/2021 Abstract [facility] CONVERSION[facility] Dental, Provider, DDS Social History [...] Description 01/31/2025 11:30 AM EST Office Visit [facility] [address] [place] [address] Candido Lozano MD [address] [place] [address] documented as of this encounter Visit Diagnoses Not on filedocumented in this encounter Care Teams Paint Booth Operator Relationship Specialty Start Date End Date Candido Lozano MD [address] [place], [place] [phone] PCP - General Internal Medicine 12/13/13 Keerthi Rahman, FAISAL [address] [place] [address] Registered Nurse Family Medicine 10/02/24 11/06/24 Vincent Lundberg 10/02/24 Emile Lundberg RN [address] [facility] [address] Registered Nurse Family Medicine 11/06/24 Brittany Wong Hog DriverDirector Of Institutional Research 03/08/24 [facility] 10/12/24 documented as of this encounter
--- OUTSIDE RECORDS SUMMARY | 2024-11-29 16:17 | XMS_ITS | Clinical Summary ---
Author Organization [facility] Address [address] [phone] Phone Care Team Providers Care Retort Forker Name Role Phone Unavailable Primary Care Provider [...] ACO C3 ACO C3 ACO C3 [facility]CO [facility] C3 ACO Additional Source Comments The information contained in this document represents components of the legal health record. It is not the complete legal health record.[facility]
--- OUTSIDE RECORDS SUMMARY | 2024-11-29 16:17 | XMS_ITS ---
Author Organization [facility] Address [address] [facility] 7 [place] [address] Care Team Providers Care Erisa Attorney Name Role Phone Candido Lozano MD Primary Care Provide r Vincent Lundberg Unavailable Emile Lundberg RN Unavailable [phone] [facility] Complex Status:Outreach In Progress (Enrolling) Start date:10/02/2024 Enrollment reason:ADT Feed Overview ADT- admitted [facility] 10/02/24 Case Team Name Relationship Phone Vincent Lundberg(Responsible Staff) [phone] Continued Care and Services Coordination
--- OUTSIDE RECORDS SUMMARY | 2024-11-29 16:17 | XMS_ITS | Encounter Summary ---
Author Organization [facility] Address [address] [facility] [address] [place] [phone] Phone Care Team Providers Care Grain Unloader Name Role Phone Unavailable Primary Care Provider Unavailabl e Encounter Details Date Type Department Care Team (Late st Contact Info) Description 01/21/2020 Procedure Pass [facility] [address] [place] [address] [place] [address] Social History Tobacco Use Types [...] It is not the complete legal health record.[facility]
== END 2024-11-29 11:58 | disposition home or self-care (01) ==
LOC: HO.HHCL 11:57
PROVIDERS: PCP Internal Medicine; Visit Provider Internal Medicine
DX: Z09 Encounter for follow-up examination after completed treatment for conditions other than malignant neoplasm (principal)
CPT/HCPCS: 36415; 85025

== ENCOUNTER 2024-12-04 11:08 | Outpatient (REF) | payer MEDICAID, SELFPAY ==
--- OUTSIDE RECORDS SUMMARY | 2024-11-29 11:00 | XMS_ITS | Encounter Summary ---
Author Organization [employer] Address [address] [place] [address] Care Team Providers Care Wallpaper Scraper Name Role Phone Candido Lozano MD Primary Care Provide r Vincent Lundberg Unavailable Emile Lundberg RN Unavailable [phone] Encounter Details Date Type Department Care Team ([facility] st Contact Info) Description 11/29/2024 11:00 AM EDT Office Visit [facility] [address] [place], [place] [phone] Candido Lozano MD [address] [place], [place] [phone] Hospital discharge follow-up (Primary Dx); Paroxysmal atrial [...] Pt here for a HDF Admitted to [facility] 10/02-10/15/2024 after he presented with [...] NO indication for anticoagulant as of discharge [id number] Outpatient follow up with cardiology recommended Continue Metoprolol 25 mg po daily Relevant Medications metoprolol tartrate (Lopressor) 25 MG tablet 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 2 weeks ago 11/12/2024 and has a follow up tomorrow This note was drafted using Ambient (AI) technology. 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 2 weeks ago 11/12/2024 and has a follow up tomorrow * Assessment & Plan Note - Candido Camara MD - 11/29/2024 11:28 AM EDT Associated Problem(s): Paroxysmal atrial fibrillation (CMS/HCC) Back to [facility] with frequent PACs, ECHO done in hospital EF preserved Per DC summary NO indication for anticoagulant as of discharge [id number] Outpatient follow up with cardiology recommended Continue Metoprolol 25 mg po daily * Assessment & Plan Note - Candido Camara MD - 11/29/2024 11:28 AM EDT Associated Problem(s): Hospital discharge follow-up Pt here for a HDF Admitted to [facility] 10/02-10/15/2024 after he presented with [...] Description 01/31/2025 11:30 AM EST Office Visit [facility] [address] [place] [address] Candido Lozano MD [address], [place] [phone] documented as of this encounter Procedures Procedure Name Priority Date/Time Associated Diagnosis Comments URINALYSIS, COMPLETE, WITH REFLEX TO CULTURE Routine 12/04/2024 11:21 AM EDT Hospital discharge follow-up CBC WITH AUTO DIFFERENTIAL Routine 11/29/2024 12:03 PM EDT Hospital discharge follow-up documented in this encounter Results * (ABNORMAL) Urinalysis, Complete, with Reflex to Culture (12/04/2024 11:21 AM EDT) Color Urine Yellow [facility] Appearance Urine Clear [facility] PH 6.0 5.0 - 9.0 [facility] Glucose Urine UA Negative Negative mg/dL [facility] Urine Blood Negative Negative [facility] Specific [place] - Urine 1.015 1.005 - 1.025 [facility] Urine Protein Negative Neg-Trace mg/dL [facility] Urine Ketones Negative Negative mg/dL [facility] Nitrite Urine Positive(A) Negative [facility] Leukocyte Esterase Urine Small (1+)(A) Negative [facility] RBC Urine 0-2 0 - 2 /HPF [facility] Urine WBC 11-20(A) 0 - 5 /HPF [facility] Urine Squamous Epithelial Cell 0-2 0 - 2 /HPF [facility] Urine Bacteria 4+ None Seen [facility] Hyaline Casts, Urine 0-2 0 - 2 /LPF [facility] Urine 12/04/2024 11:2 1 AM EDT 12/04/2024 1:08 PM EDT Narrative [facility] - 12/04/2024 1:30 PM EDT Urine, Clean Catch us Candido Camara MD LAB URINE ORDERABLES Final Result [facility] [address] [place] [phone] * (ABNORMAL) CBC auto differential (11/29/2024 12:03 PM EDT) White Blood Count 16.6(H) 4.8 - 10.8 X10*3/uL [facility] Red Blood Count 5.40 4.60 - 5.80 X10*6/uL [facility] Hemoglobin 11.0(L) 14.0 - 18.0 g/dl [facility] Hematocrit 36.2(L) 42.0 - 52.0 % [facility] Mean Corpuscular Volume 67.0(L) 80.0 - 98.0 fL [facility] Mean Corpuscular Hemoglobin 20.4(L) 27.0 - 33.0 pg [facility] Mean Corpuscular HGB Conc 30.4(L) 31.0 - 36.0 g/dl [facility] Red Cell Distribution Width 21.8(H) 11.0 - 16.0 % [facility] Platelet Count 454(H) 160 - 400 X10*3/uL [facility] Mean Platelet Volume 9.0(L) 9.4 - 12.4 fL [facility] Neutrophils Percent Auto 72.9 45 - 73 % [facility] Imm Gran Pct Auto 0.7(H) 0.0 - 0.4 % [facility] Lymphocytes Percent Auto 15.2(L) 20 - 40 % [facility] Monocytes Percent Auto 7.2 2 - 11 % [facility] Eosinophils Percent Auto 3.6 0 - 4 % [facility] Basophils Percent Auto 0.4 0 - 2 % [facility] NRBC Pct Auto 0.0 0.0 - 0.2 /100WBC [facility] Neutrophils Absolute Auto 12.1(H) 2.0 - 8.3 x10*3/uL [facility] Imm Gran Abs Auto 0.11(H) 0.00 - 0.03 X10*3/uL [facility] Lymphocytes Absolute Auto 2.5 1.2 - 4.9 X10*3/uL [facility] Monocytes Absolute Auto 1.2 0.1 - 1.2 X10*3/uL [facility] Eosinophils Absolute Auto 0.6(H) 0.0 - 0.4 X10*3/uL [facility] Basophils Absolute Auto 0.1 0.0 - 0.2 X10*3/uL [facility] NRBC Abs Auto 0.000 0.0 - 0.012 X10*3/uL [facility] Blood Venous blood specimen / Unknown 11/29/2024 12:03 PM EDT 11/29/2024 1:03 PM EDT us Candido Camara MD LAB BLOOD ORDERABLES Final Result [facility] [address] [place] [address] [phone] documented in this encounter Visit Diagnoses Diagnosis Hospital discharge follow-up- Primary Other follow-up examination Paroxysmal atrial fibrillation (CMS/HCC) Atrial fibrillation Pressure ulcers of skin of multiple topographic sites documented in this encounter Additional Health Concerns Assessment Noted Time PHQ-9 Depression Total Score: 0 11/21/19 2:07 PM EDT documented as of this encounter Care Teams Wallpaper Scraper Relationship Specialty Start Date End Date Candido Lozano MD [address] [place] [address] PCP - General Internal Medicine 12/13/13 Vincent Lundberg 10/02/24 Emile Lundberg, RN [address] [place] [address] Registered Nurse Family Medicine 11/06/24 Brittany Wong Kieselguhr Regenerator OperatorDietary Supervisor 03/08/24 [facility] 10/12/24 documented as of this encounter
[2024-12-04 13:20] LABS: Appearance Urine Clear; Glucose Urine UA Negative (Negative); PH 6.0 (5.0-9.0); Specific Gravity - Urine 1.015 (1.005-1.025); UMIC TRIGGER UACC YES
[2024-12-04 13:29] LABS: UACC Culture Trigger YES
--- OUTSIDE RECORDS SUMMARY | 2024-12-04 15:15 | XMS_ITS ---
Author Organization [facility] Address [address] [facility] 7 [place] [address] Care Team Providers Care Laborer Rags Name Role Phone Candido Lozano MD Primary Care Provide r Vincent Lundberg Unavailable Emile Lundberg RN Unavailable [facility] Complex Status:Outreach In Progress (Enrolling) Start date:10/02/2024 Enrollment reason:ADT Feed Overview ADT- admitted [facility] 10/02/24 Case Team Name Relationship Phone Vincent Lundberg(Responsible Staff) [phone] Continued Care and Services Coordination
--- OUTSIDE RECORDS SUMMARY | 2024-12-04 15:15 | XMS_ITS | Encounter Summary ---
Author Organization [facility] Address [address] [facility] 7t [place] [address] Care Team Providers Care Artist Suspect Name Role Phone Candido Lozano MD Primary Care Provide r Vincent Lundberg Unavailable Emile Lundberg RN Unavailable [phone] Reason for Visit * Reason Comments Care Management C3CM- f/u call Encounter Details Date Type Department Care Team ([facility] st Contact Info) Description 12/03/2024 Patient Outreach [facility] [address] [place], [place] [phone] Candido Lozano MD [address] [place], [place] [phone] Care Management (C3CM- f/u call) Social History Tobacco Use Types Packs/Day Years [...] AM EDT documented as of this encounter Progress Notes * Emile Lundberg RN - 12/03/2024 10:57 AM EDT CM Emile Lundberg RN placed outbound call to patient. Patient's name, and address confirmed. Patient states is doing well with no recent illnesses or emergency room visits. Patient confirms attending [facility] with PCP as scheduled and states the visit went well. He reports completing the antibioticsand states the PICC line was removed. Per patient, still receiving VNA services 2x/week. Patient states he has been doing well overall and confirms that he is following up with the wound clinic as scheduled. Patient states he received the metoprolol from cardiology and reports taking Rx as prescribed. He reports compliance to all medications and denies any side effects or concerns. Patient is aware of his scheduled f/u with Cardiology on 12/19. He states he has transportation to the visit and denies any barriers to attending. He denies any immediate needs or concerns at this time. No further questions or concerns. CM reinforced direct contact information for any additional questions or concerns. [facility]. Patient provided with after-hours line for [facility], , which offer night time triage service and option to transfer to adjunct instructor in economics provider if needed. Patient verbalizes understanding, and able to r epeat back to continuity writer. A follow up call will be placed within 10 days, patient agrees with plan. documented in this encounter Plan of Treatment Upcoming Encounters Date Type Department Care Team ([facility] st Contact Info) Description 01/31/2025 11:30 AM EST Office Visit [facility] [address] [place] [address] Candido Lozano MD [address] [place] [address] documented as of this encounter Visit Diagnoses Not on filedocumented in this encounter Additional Health Concerns Assessment Noted Time PHQ-9 Depression Total Score: 0 11/21/19 2:07 PM EDT documented as of this encounter Care Teams Artist Suspect Relationship Specialty Start Date End Date Candido Lozano MD [address] [place] [address] PCP - General Internal Medicine 12/13/13 Vincent Lundberg 10/02/24 Emile Lundberg RN [address] [place] [address] Registered Nurse Family Medicine 11/06/24 Brittany Wong Theatrical TrouperMedical Coding Manager 03/08/24 [facility] 10/12/24 documented as of this encounter
--- OUTSIDE RECORDS SUMMARY | 2024-12-04 15:15 | XMS_ITS | Clinical Summary ---
Author Organization [facility] Address [address] [phone] Care Team Providers Care Trimming Department Blocker Name Role Phone Rodrigo Goodwin Primary Care Provider [phone] Allergies No known active allergies Medications amLODIPine [...] patient's age to complete this topic Insurance Modulus Advance Directives Healthcare Agents on File Name Relationship Healthcare Agent Relationship Communication Masha Chairez Mother Next of Kin Care Teams Trimming Department Blocker Relationship Specialty Start Date End Date Rodrigo Goodwin PA [address] [place] [address] E/R RENATA Charles [address] PCP - General Emergency Medicine 12/29/22
--- OUTSIDE RECORDS SUMMARY | 2024-12-04 15:15 | XMS_ITS | Encounter Summary ---
Author Organization [facility] Address [address] [facility] 7t [place] [address] Care Team Providers Care Risk Control Manager Name Role Phone Candido Lozano MD Primary Care Provide r Keerthi Rahman RN Unavailable [phone] Vincent Lundberg Unavailable Emile Lundberg RN Unavailable [phone] Reason for Visit * Reason Onset Date Comments Durable Medical Equipment 06/02/2022 Encounter Details Date Type Department Care Team (Late st Contact Info) Description 06/02/2022 Telephone [facility] [address] [place], [place] [phone] Candido Lozano MD [address] [place], [place] [phone] Durable Medical Equipment Social History Tobacco Use [...] 06/07/2022 10:42 AM EDT Called Brittany from [facility] gave her all the info on bed [...] bed today or tomorrow latest. Any question [facility] phone number is [phone] * Telephone Encounter - Omer Hartley - 06/02/2022 2:47 PM EDT Tc from kelly with [facility] requesting a script for a hospital bed to be send [facility] Please contact Brittany at [phone] documented in this encounter Plan of Treatment Upcoming Encounters Date Type Department Care Team (Late st Contact Info) Description 01/31/2025 11:30 AM EST Office Visit [facility] [address] [place] [address] Candido Lozano MD [address] [place] [address] documented as of this encounter Visit Diagnoses Not on filedocumented in this encounter Care Teams Risk Control Manager Relationship Specialty Start Date End Date Candido Lozano MD [address] [place] [address] PCP - General Internal Medicine 12/13/13 Keerthi Rahman RN [address] [place] [address] Registered Nurse Family Medicine 10/02/24 11/06/24 Vincent Lundberg 10/02/24 Emile Lundberg RN [address] [place] [address] [place] [address] Registered Nurse Family Medicine 11/06/24 Brittany Wong [employer] 03/08/24 [facility] 10/12/24 documented as of this encounter
--- OUTSIDE RECORDS SUMMARY | 2024-12-04 15:15 | XMS_ITS | Clinical Summary ---
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 2 weeks ago 11/12/2024 and has a follow up tomorrow Assessment & Plan (08/07/2024 1:37 PM EDT): 42-year-old paraplegic male with multiple ulcers Patient will continue to follow the recommendations from [facility] wound center Last seen 07/03/2024, Patient missed appointment July 25, Recommended Roho cushion for wheelchair which he has. Patient has multiple pressure ulcers: 1.-Left Perineum 2.-Sacrum 3.-Right posterior upper leg: perical calcium alginate gauze 4.-Midline Coccyx; impregnated dresssing 5.-Left proximal perineum 6.-Right Trocanter Getting collagen dressings at [facility] Seen by Pasquale and Dr Harden Per wound clinic he should be doing daily dressing changes for all 6 wounds I was able to make an appointment for patient for tomorrow at 3: 15 PM Hospital discharge follow-up 04/19/2024 Assessment & Plan (11/29/2024 3:37 PM EDT): Pt here for a HDF Ad[place] [facility] [place]15[place]2024 after he presented with fevers and [...] Pt here for a HDF Admitted [place] [facility] [place]24 He presented to the emergency room [...] was last seen by ID 04/11/2024 at [facility] I was able to schedule an appointment for him for Tuesday04/23/2024 at 10:15 AM Routine physical examination 07/05/2023 Assessment & Plan (08/07/2024 1:37 PM EDT): Aside from his baseline and multiple pressure ulcers ,Within normal limits Assessment & Plan (07/05/2023 10:53 AM EDT): Within normal limits Poor dentition 12/01/2022 Overview (12/01/2022): Needs crown Was evaluated about 1 year ago at [facility], no dental accessible chairs Needs assistance getting into dental chair Assessment & Plan (12/01/2022 7:11 PM EDT): Will task MA to contact [facility] dental and verify there are no accessible [...] intestines and surrounding skin. Had appt with [facility] 09/06/22 Dr. Ball. Pending surgery. [...] Self cath. s/p Colostomy placed. released from jail July 23, 2013 after 1.5 years. 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 Crenshaw Pt was seen [place] [facility] [place]25[place]2011 and on 11/26/2011 after he [...] Self cath. s/p Colostomy placed. released from jail July 23, 2013 after 1.5 years. On probation. 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 Crenshaw Pt was seen at [facility] [place] 10[place]25/2011 and on 11/26/2011 after he [...] Self cath. s/p Colostomy placed. released from jail July 23, 2013 after 1.5 years. On probation. 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 Crenshaw Pt was seen at [facility] [place] 10/25/2011 and on 11/26/2011 after he [...] will continue to follow the recommendations from [facility] wound center for daily soap and [...] Encounters Date Type Department Care Team Description 12/03/2024 Patient Outreach [address] [address] Candido Lozano MD Care Management ([facility]- f/u call) 11/29/2024 11:00 AM EDT Office Visit [address] [address] Candido Lozano MD Hospital discharge follow-up (Primary Dx); Paroxysmal atrial fibrillation ([facility]); Pressure ulcers of skin of multiple topographic sites 11/29/[address] [address] Candido Lozano MD Durable Medical Equipment 11/29/2024 Travel 11/28/2024 Telephone [facility] [address] [place] [address] Marely Pavon MA 11/21/2024 Plan of Care Documentation [address] [address] 11/20/2024 Results Follow-Up [address] [address] Candido Lozano MD Comprehensive Metabolic Panel, TSH with Reflex to Free T4, CBC auto differential 11/20/2024 Patient Outreach [address] [address] Candido Lozano MD Care Management (C3- initial assessment/ enrollment) 11/16/2024 Patient Outreach [address] [place] [address] Vincent Lundberg Care Coordination ( C3CM/CHW Vincent Lundberg, Appt reminder ) 11/15/2024 Telephone [facility] [address] [facility] [place] [address] Candido Lozano MD Appointment Confirmation 11/06/2024 Patient Outreach [facility] [address] [facility] [place] [address] Candido Lozano MD 11/06/2024 Patient Outreach [facility] [address] [facility] [place] [address] Candido Lozano MD 11/06/2024 Patient Outreach [facility] [address] [facility] [place] [address] Candido Lozano MD Care Coordination (C3CM/CHW Vincent Lundberg, Initial assessment scheduled ) 10/29/2024 Telephone [facility] [place] [address] Candido Lozano MD Durable Medical Equipment 10/25/2024 Orders Only [facility] [place] [address] Candido Lozano MD Neurogenic bladder (Primary Dx) 10/24/2024 Telephone [facility] [place] [address] Candido Lozano MD Referral 10/18/2024 Patient Outreach [facility] [facility] [place] [address] Candido Lozano MD Care Coordination (Call Bck Request- [facility]) 10/15/2024 Patient Outreach [facility] [place] [address] Candido Lozano MD Transition Of Care (Tcm) (HDF unscheduled) 10/12/2024 Patient Outreach [facility] [place] [address] Candido Lozano MD 10/10/2024 Patient Outreach [facility] [address] [place] [address] Cnadido Lozano MD Care Coordination ([facility]/Dale Lundberg TC #3 outreach for enrollment) 10/09/2024 Telephone [facility] [address] [place] [address] Candido Lozano MD Verbal Order 10/09/[address] [address] Candido Lozano MD Durable Medical Equipment 10/08/2024 Patient Outreach [facility] [address] [place] [address] Candido Lozano MD 10/05/2024 Patient Outreach [address] [address] Candido Lozano MD Care Coordination ([facility]/Dale Lundberg TC #2 initial outreach_patient admitted ) 10/02/2024 Patient Outreach [address] [address] Candido Lozano MD 10/02/2024 Patient Outreach [address] [address] Vincent Lundberg Care Coordination ([facility]/Dale Lundberg, initial outreach attempt_lvm) 10/02/2024 Patient Outreach [address] [address] Candido Lozano MD Care Coordination ([facility]/Dale Lundberg, Chart review ) 10/02/2024 Patient Outreach [facility] [address] [place] [address] Candido Lozano MD Care Coordination (Chart review) 10/02/2024 Patient Outreach [facility] [address] [place] [address] Candido Lozano MD 09/07/[address] [address] Candido Lozano MD Durable Medical Equipment 09/04/2024 Telephone [facility] [address] [place] [address], [place] [address] Candido Lozano MD Referral 09/03/2024 Telephone [facility] [address] [place] [address] Candido Lozano MD Care Coordination 09/03/2024 Telephone [facility] [address] [place] [address] Candido Lozano MD Durable Medical Equipment from [...] your housing situation today? I have jose ab 08/07/[address] you li [...] Description 01/31/2025 11:30 AM EST Office Visit [facility] [address] [place] [address] Candido Lozano MD [address] [place] [address] Health Maintenance Due Date Last Done Comments HIV Screening 1980 Family Planning (PISQ) 12/16/1994 HPV Vaccines (1 - Male 3-dose series) 12/16/1994 Hepatitis C Screening 12/16/1997 Hepatitis B Vaccines (1 of 3 - 19+ 3-dose series) 12/16/1998 Dental Oral Exam 12/19/2021 06/17/2021, 03/31/2016 Dental Prophylaxis 12/19/2021 06/17/2021 Dental X-Ray: Bitewings 06/18/2022 06/17/2021, 03/31 Dental X-Ray: Full Mouth 06/18/2024 06/17/2021, 03/21 COVID-19 Vaccine ( - season) 2024 04/14/2021, 08/08/2020, 07/17/2020 Influenza Vaccine [...] Relevant to Health Maintenance Results * (ABNORMAL) Urinalysis, Complete, with Reflex to Culture (12/04/2024 11:21 AM EDT) Color Urine Yellow [facility] Appearance Urine Clear [facility] PH 6.0 5.0 - 9.0 [facility] Glucose Urine UA Negative Negative mg/dL [facility] Urine Blood Negative Negative [facility] Specific [place] - Urine 1.015 1.005 - 1.025 [facility] Urine Protein Negative Neg-Trace mg/dL [facility] Urine Ketones Negative Negative mg/dL [facility] Nitrite Urine Positive(A) Negative [facility] Leukocyte Esterase Urine Small (1+)(A) Negative [facility] RBC Urine 0-2 0 - 2 /HPF [facility] Urine WBC 11-20(A) 0 - 5 /HPF [facility] Urine Squamous Epithelial Cell 0-2 0 - 2 /HPF [facility] Urine Bacteria 4+ None Seen [facility] Hyaline Casts, Urine 0-2 0 - 2 /LPF [facility] Urine 12/04/2024 11:2 1 AM EDT 12/04/2024 1:08 PM EDT Narrative [facility] - 12/04/2024 1:30 PM EDT Urine, Clean Catch us Candido Camara MD LAB URINE ORDERABLES Final Result [facility] [address] [place] [address] [phone] * (ABNORMAL) CBC auto differential (11/29/2024 12:03 PM EDT) Only the most recent of2 resultswithin the time period is included. White Blood Count 16.6(H) 4.8 - 10.8 X10*3/uL [facility] Red Blood Count 5.40 4.60 - 5.80 X10*6/uL [facility] Hemoglobin 11.0(L) 14.0 - 18.0 g/dl [facility] Hematocrit 36.2(L) 42.0 - 52.0 % [facility] Mean Corpuscular Volume 67.0(L) 80.0 - 98.0 fL [facility] Mean Corpuscular Hemoglobin 20.4(L) 27.0 - 33.0 pg [facility] Mean Corpuscular HGB Conc 30.4(L) 31.0 - 36.0 g/dl [facility] Red Cell Distribution Width 21.8(H) 11.0 - 16.0 % [facility] Platelet Count 454(H) 160 - 400 X10*3/uL [facility] Mean Platelet Volume 9.0(L) 9.4 - 12.4 fL [facility] Neutrophils Percent Auto 72.9 45 - 73 % [facility] Imm Gran Pct Auto 0.7(H) 0.0 - 0.4 % [facility] Lymphocytes Percent Auto 15.2(L) 20 - 40 % [facility] Monocytes Percent Auto 7.2 2 - 11 % [facility] Eosinophils Percent Auto 3.6 0 - 4 % [facility] Basophils Percent Auto 0.4 0 - 2 % [facility] NRBC Pct Auto 0.0 0.0 - 0.2 /100WBC [facility] Neutrophils Absolute Auto 12.1(H) 2.0 - 8.3 x10*3/uL [facility] Imm Gran Abs Auto 0.11(H) 0.00 - 0.03 X10*3/uL [facility] Lymphocytes Absolute Auto 2.5 1.2 - 4.9 X10*3/uL [facility] Monocytes Absolute Auto 1.2 0.1 - 1.2 X10*3/uL [facility] Eosinophils Absolute Auto 0.6(H) 0.0 - 0.4 X10*3/uL [facility] Basophils Absolute Auto 0.1 0.0 - 0.2 X10*3/uL [facility] NRBC Abs Auto 0.000 0.0 - 0.012 X10*3/uL [facility] Blood Venous blood specimen / Unknown 11/29/2024 12:03 PM EDT 11/29/2024 1:03 PM EDT Candido Camara MD LAB BLOOD ORDERABLES Final Result [facility] [address] [place] [phone] * TSH with Reflex to Free T4 (11/14/2024 10:51 AM EDT) TSH reflex Free T4 1.22 0.32 - 4.0 uIU/mL [facility] Blood Venous blood specimen / Unknown 11/14/2024 10:51 AM EDT 11/14/2024 1:04 PM EDT Candido Camara MD LAB BLOOD ORDERABLES Final Result [facility] [address] [place] [address] [phone] * (ABNORMAL) Comprehensive Metabolic Panel (11/14/2024 10:51 AM EDT) Sodium 140 135 - 145 mmol/L [facility] Potassium 3.8 3.3 - 5.1 mmol/L [facility] Chloride 104 96 - 108 mmol/L [facility] Carbon Dioxide 22 22 - 29 mmol/L [facility] Anion Gap 18 12 - 20 [facility] Urea Nitrogen (BUN) 10 9 - 16 mg/dL [facility] Creatinine, Serum 0.62 0.5 - 1.4 mg/dL [facility] Estimated Glomerular Filt Rate >60 [facility] Comment:Chronic Kidney Disea se: Estimated GFR < 60 mL/min/1.31q1Pdrufy Kidney Disease: Estimated GFR < 15 mL/min/1.73m2 Glucose 87 60 - 115 mg/dL [facility] Calcium 9.7 8.4 - 10.2 mg/dL [facility] Bilirubin, Total 0.8 0.0 - 1.0 mg/dL [facility] Aspartate Amino Transferase 36 5 - 37 U/L [facility] Alanine Aminotransferase 25 0 - 40 U/L [facility] Total Protein 8.9(H) 6.5 - 8.0 g/dL [facility] Albumin Level 3.9 3.5 - 5.0 g/dL [facility] Alkaline Phosphatase 110 39 - 117 U/L [facility] Blood Venous blood specimen / Unknown 11/14/2024 10:51 AM EDT 11/14/2024 1:04 PM EDT us Candido Camara MD LAB BLOOD ORDERABLES Final Result [facility] [address] [place] [phone] [phone] * (ABNORMAL) Lipid Panel, Standard (04/16/2024 9:40 AM EST) Triglycerides 82 <150 mg/dL [facility] Comment:Desirable Triglyceri de: less than 150 mg/dLBorderline High Triglyceride 150-199 mg/dLHigh Triglyceride: 200-499 mg/dLVery High Triglyceride: greater than or equal to 5OO mg/dL Cholesterol 143 <200 mg/dL [facility] Comment:Desirable Cholestero l: less than 200 mg/dLBorderline High Cholesterol: 200-239 mg/dLHigh Cholesterol: greater than 239 mg/dL LDL Cholesterol Calculated 88 <100 mg/dL [facility] Comment:Desirable LDL: less than 100 mg/dLNear Optimal/Above Optimal LDL: 110- 129 mg/dLBorderline High LDL: 130-159 mg/dLHigh LDL: 160-189 mg/dLVery High LDL: greater than or equal to 190 mg/dL HDL Cholesterol 39(L) >40 mg/dL [facility] Comment:Desirable HDL: great er than 40 mg/dL Note: This HDL assay may give artificially low results in patients with liver disease. Blood Venous blood specimen / Unknown 04/16/2024 9:40 AM EST 04/16/2024 11:25 AM EST Candido Camara MD LAB BLOOD ORDERABLES Final Result [facility] [address] [place] [address] [phone] from Last 3 Months or Most Recently Relevant to Health Maintenance [place] [address] [place] [address] C[place] AD[place] Care Teams Family Advocate Relationship Specialty Start Date End Date Candido Lozano MD [address] [place] [id number] PCP - General Internal Medicine 12/13/13 Vincent Lundberg 10/02/24 Emile Lundberg RN [address] [place] [phone] Registered Nurse Family Medicine 11/06/24 Brittany Wong Company DriverSolar Photovoltaic Installer 03/08/24 [facility] 10/12/24
--- OUTSIDE RECORDS SUMMARY | 2024-12-04 15:15 | XMS_ITS | Encounter Summary ---
Author Organization [employer] [facility] Address [address] [place] [address] 7t [place] [address] Care Team Providers Care Grid Inspector Name Role Phone Candido Lozano MD Primary Care Provide r Keerthi Rahman RN Unavailable [phone] Vincent Lundberg Unavailable Emile Lundberg RN Unavailable [phone] Encounter Details Date Type Department Care Team (Latest Contact Info) Description 06/17/2021 Abstract [facility] CONVERSIONS Dental, Provider, DDS Social History [...] Description 01/31/2025 11:30 AM EST Office Visit [facility] [address] [place] [address] Candido Lozano MD [address] [place] [address] documented as of this encounter Visit Diagnoses Not on filedocumented in this encounter Care Teams Grid Inspector Relationship Specialty Start Date End Date Candido Lozano MD [address] [place], [place] [phone] PCP - General Internal Medicine 12/13/13 Keerthi Rahman, FAISAL [address] [place] [address] Registered Nurse Family Medicine 10/02/24 11/06/24 Vincent Lundberg 10/02/24 Emile Lundberg RN [address] [place] [address] Registered Nurse Family Medicine 11/06/24 Brittany Wong Product Marketing ManagerYeast Culture Operator 03/08/24 [facility] 10/12/24 documented as of this encounter
--- OUTSIDE RECORDS SUMMARY | 2024-12-04 15:15 | XMS_ITS | Encounter Summary ---
Author Organization [employer] Address [address] [facility] 7t [place] [address] Care Team Providers Care Superintendent Service Name Role Phone Candido Lozano MD Primary Care Provide r Vincent Lundberg Unavailable Emile Lundberg RN Unavailable [phone] Reason for Visit * Reason Onset Date Comments Durable Medical Equipment 11/29/2024 Encounter Details Date Type Department Care Team (Late st Contact Info) Description 11/29/2024 Telephone [facility] [address] [place], [place] [phone] Candido Lozano MD [address] [place], [place] [phone] Durable Medical Equipment Social History Tobacco Use [...] Telephone Encounter - Komal Curtis RN - 12/04/2024 8:58 AM EDT DME order for reusable bed pads faxed to Jose. Confirmation received. * Telephone Encounter - Felecia Ace - 12/03/2024 3:24 PM EDT Rx generated for [employer] D[employer] Retention Sheet and sent to pcp via [employer]. Once signed, will be faxed to Uli and scanned into media. * Telephone Encounter - Komal Curtis RN [...] Description 01/31/2025 11:30 AM EST Office Visit [facility] [address] [place] [address] Candido Lozano MD [address] [place] [address] documented as of this encounter Visit Diagnoses Not on filedocumented in this encounter Additional Health Concerns Assessment Noted Time PHQ-9 Depression Total Score: 0 11/21/19 2:07 PM EDT documented as of this encounter Care Teams Superintendent Service Relationship Specialty Start Date End Date Candido Lozano MD [address] [place], [place] [phone] PCP - General Internal Medicine 12/13/13 Vincent Lundberg 10/02/24 Emile Lundberg RN [address] [place] [address] Registered Nurse Family Medicine 11/06/24 Brittany Wong Utilities ManagerCommercial Lines Account Executive 03/08/24 [facility] 10/12/24 documented as of this encounter
--- OUTSIDE RECORDS SUMMARY | 2024-12-04 15:15 | XMS_ITS ---
Author Organization [employer] [facility] Address [address] [facility] 7t [place] [address] Care Team Providers Care District Traffic Chief Name Role Phone Candido Lozano MD Primary Care Provide r Vincent Lundberg Unavailable Emile Lundberg RN Unavailable [phone] CM Complex Status:Enrolled (Active) Start date:10/02/2024 Enrollment date:11/20/2024 Enrollment reason:ADT Feed Overview ADT- admitted [facility] 10/02/24 Case Team Name Relationship Phone Emile Lundberg RN(Responsible Staff) Registered Nurse [phone] Continued Care and Services Coordination
--- OUTSIDE RECORDS SUMMARY | 2024-12-04 15:15 | XMS_ITS | Encounter Summary ---
Author Organization [employer] Address [address] [facility] [address] [place] [address] Care Team Providers Care Employee Relations Manager Name Role Phone Candido Lozano MD Primary Care Provide r Vincent Lundberg Unavailable Emile Lundberg RN Unavailable [phone] Encounter Details Date Type Department Care [...] 11:30 AM EST Office Visit [facility] [address] [place] [address] Candido Lozano MD [address] [place] [address] documented as of this encounter Visit Diagnoses Not on filedocumented in this encounter Additional Health Concerns Assessment Noted Time PHQ-9 Depression Total Score: 0 11/21/19 2:07 PM EDT documented as of this encounter Care Teams Employee Relations Manager Relationship Specialty Start Date End Date Candido Lozano MD [address] [place] [address] PCP - General Internal Medicine 12/13/13 Vincent Lundberg 10/02/24 Emile Lundberg, RN [address] [place] [address] Registered Nurse Family Medicine 11/06/24 Brittany Wong Cooking TeacherStill Cleaner 03/08/24 [facility] 10/12/24 documented as of this encounter
== END 2024-12-04 11:09 | disposition home or self-care (01) ==
LOC: HO.HHCL 11:08
PROVIDERS: PCP Internal Medicine; Visit Provider Internal Medicine
DX: Z09 Encounter for follow-up examination after completed treatment for conditions other than malignant neoplasm (principal)
CPT/HCPCS: 81001; 87086; 87088; 87186

== ENCOUNTER 2025-03-08 10:31 | Outpatient (REF) | payer MEDICAID, SELFPAY ==
--- OUTSIDE RECORDS SUMMARY | 2025-03-08 12:11 | XMS_ITS | Encounter Summary ---
Author Organization [employer] [facility] Address [address] [place] [address] 7 [place] [address] Care Team Providers Care Tractor Operator Helper Name Role Phone Candido Lozano MD Primary Care Provide r Keerthi Rahman RN Unavailable Unavailable Vincent Lundberg Unavailable Emile Lundberg RN Unavailable [phone] Encounter Details Date Type Department Care Team (Latest Contact Info) Description 06/17/2021 Abstract [facility] CONVERSIONS Dental, Provider, DDS Social History Tobacco [...] Care Team (Late st Contact Info) Description 04/26/2025 10:30 AM EST Office Visit [facility] ADULT DENTAL [address] [place] [address] Dave Goldberg DDS [address] [place] [address] documented as of this encounter Visit Diagnoses Not on filedocumented in this encounter Care Teams Tractor Operator Helper Relationship Specialty Start Date End Date Candido Lozano MD [address] [place] [address] PCP - General Internal Medicine 12/13/13 Keerthi Rahman RN [address] [place] [address] Registered Nurse Family Medicine 10/02/24 11/06/24 Vincent Lundberg 10/02/24 02/12/25 Emile Lundberg RN [address] [place] [address] Registered Nurse Family Medicine 11/06/24 12/17/24 Brittany Wong Crusher Loader Equipment OperatorHigh Speed Operator 03/08/24 [facility] 10/12/24 documented as of this encounter
--- OUTSIDE RECORDS SUMMARY | 2025-03-08 12:11 | XMS_ITS | Encounter Summary ---
Author Organization [facility] Address [address] [facility] [address] [place] [address] Care Team Providers Care Arc Trimmer Name Role Phone Candido Lozano MD Primary Care Provide r Keerthi Rahman RN Unavailable Unavailable Vincent Lundberg Unavailable Emile Lundberg RN Unavailable [phone] Reason for Visit * Reason Onset Date Comments Durable Medical Equipment 06/02/2022 Encounter Details Date Type Department Care Team (Late st Contact Info) Description 06/02/2022 Telephone [facility] MEDICINE [address] [place], [place] [phone] Candido Lozano MD [address] [place], [place] [phone] Durable Medical Equipment Social History Tobacco Use [...] Marlyn Quick - 06/07/2022 10:42 AM EDT Adrián Brittany from [facility] gave [...] bed today or tomorrow latest. Any question [facility] phone number is [phone] * Telephone Encounter - Omer Hartley - 06/02/2022 2:47 PM EDT Tc from [facility] with [facility] requesting a script for a hospital bed to be send graciela [facility] Please contact Brittany at [phone] documented in this encounter Plan of Treatment Upcoming Encounters Date Type Department Care Team (Late st Contact Info) Description 04/26/2025 10:30 AM EST Office Visit [facility] ADULT DENTAL [address] [place] [address] Dave Goldberg DDS [address] [place] [address] documented as of this encounter Visit Diagnoses Not on filedocumented in this encounter Care Teams Arc Trimmer Relationship Specialty Start Date End Date Candido Lozano MD [address] [place] [address] PCP - General Internal Medicine 12/13/13 Keerthi Rahman RN [address] [place], [place] Registered Nurse Family Medicine 10/02/24 11/06/24 Vincent Lundberg 10/02/24 02/12/25 Emile Lundberg RN [address] [place] [id number] Registered Nurse Family Medicine 11/06/24 12/17/24 Brittany Wong Boilers InspectorCeramic Tiler 03/08/24 [facility] 10/12/24 documented as of this encounter
--- OUTSIDE RECORDS SUMMARY | 2025-03-08 12:12 | XMS_ITS | Clinical Summary ---
Author Organization [facility] Address [address] [phone] Phone Care Team Providers Care Sprayer Leather Name Role Phone Unavailable Primary Care Provider [...] ACO C3 ACO C3 ACO C3 ACO [facility] C3 ACO Additional Source Comments The information contained in this document represents components of the legal health record. It is not the complete legal health record.[facility]
--- OUTSIDE RECORDS SUMMARY | 2025-03-08 12:12 | XMS_ITS | Encounter Summary ---
Author Organization [employer] Address [address] [facility] 7t [place] [address] Care Team Providers Care Technical Training Instructor Name Role Phone Candido Lozano MD Primary Care Provide r Reason for Visit * Reason Comments Med Refill Encounter Details Date Type Department Care Team ([facility] st Contact Info) Description 03/02/2025 Refill [facility] MEDICINE [address] [place], [place] [phone] Candido Lozano MD [address] [place], [place] [phone] Acute cystitis without hematuria Social History Tobacco Use Types Packs/Day Years Used Date Smoking Tobacco: Never Passive Smoke Exposure: Never Smokeless Tobacco: Never Alcohol Use Standard Drinks/Week Comments Defer 0 (1 standard drink = 0.6 oz pur e alcohol) Depression Answer Date Recorded Patient Health Questionnaire-9 [...] before you got money to buy more: Often true 12/11/2024 Within the past 12 months,th e food you bought just didn't last and you didn't have enough money to get more: Often true Transportation Answer Date Recorded In the past [...] 04/26/2025 10:30 AM EST Office Visit [facility] ADULT DENTAL [address] [place] [address] Dave Goldberg DDS [address] [place] [address] documented as of this encounter Visit Diagnoses Diagnosis Acute cystitis without hematuria documented in this encounter Additional Health Concerns Assessment Noted Time PHQ-9 Depression Total Score: 0 11/21/19 2:07 PM EDT documented as of this encounter Care Teams Technical Training Instructor Relationship Specialty Start Date End Date Candido Lozano MD [address] [place] [address] PCP - General Internal Medicine 12/13/13 Brittany Wong Inside [employer] 03/08/24 [facility] 10/12/24 documented as of this encounter
--- OUTSIDE RECORDS SUMMARY | 2025-03-08 12:12 | XMS_ITS | Clinical Summary ---
Author Organization [facility] Address [address] [place] [address] Care Team Providers Care Die Operator Name Role Phone Rodrigo Goodwin Primary Care Provider [phone] Allergies No known active allergies Medications amLODIPine [...] of right ischial area, stage III 01/03/2023 Encounters Date Type Department Care Team Description 02/13/2025 2:00 PM EST Follow-Up [facility] [address] [place] [phone] Nursing Coordinator: Hillary Rothman PA Sacral decubitus ulcer, stage III (HCC) (Primary Dx); Rectal fistula; Wound of left buttock, initial encounter; Wound of right buttock, initial encounter from Last 3 Months Social History Tobacco Use Types Packs/Day Years [...] Mass Index - - Plan of Treatment Upcoming Encounters Date Type Department Care Team (Late st Contact Info) Description 03/20/2025 1:30 PM EST Office Visit [facility] Colorectal Surgery [address] [place] [phone] Nursing Coordinator: Erasmo Barajas MD [address] [place] [phone] Health Maintenance Due Date Last Done Comments Cologuard 1979 Colon Cancer Screening 1979 Colonoscopy 1979 FOBT / Fit Test 1979 HIV Screening 1979 Hepatitis C Screening 1979 Sigmoidoscopy 1979 Varicella Vaccines (1 of 2 - 13+ 2-dose series) 12/16/1992 Hepatitis B Vaccines (1 of 3 - 19+ 3-dose series) 12/16/1998 Alcohol/Substance Use Screening 03/21/2024 Depression Screening and Follow-Up 03/21/2024 Social Drivers of Health Annual Screening 03/21/2024 Influenza Vaccine (#1) 2024 9, 12/27/2017, 02/05/2016, Additional history exists COVID-19 Vaccine (2024- season) 2024 04/14/2021, 08/08/2020, 07/17/2020 DTaP,Tdap,and Td Vaccines (2 - Td or Tdap) 2024 2014 Pneumococcal Vaccine: Pediatric (0-5 Years) and At-Risk Patients (6-50 Years) Aged Out 01/28/2012, 01/08/2010 No longer eligibl e based on patient's age to complete this topic Insurance [employer] Advance Directives Healthcare Agents on File Name Relationship Healthcare Agent Relationship Communication Masha Chairez Mother Next of Kin Care Teams Die Operator Relationship Specialty Start Date End Date Rodrigo Goodwin PA [address] [place] [address] [place] [address] PCP - General Emergency Medicine 12/29/22
--- OUTSIDE RECORDS SUMMARY | 2025-03-08 12:12 | XMS_ITS | Encounter Summary ---
Author Organization [facility] Address [address] [facility] [address] [place] [phone] Phone Care Team Providers Care Packaging Line Operator Name Role Phone Unavailable Primary Care Provider Unavailabl e Encounter Details Date Type Department Care Team (Late st Contact Info) Description 01/21/2020 Procedure Pass [facility] [address] [place] [address] [place] [address] Social History Tobacco Use Types [...] It is not the complete legal health record.[facility]
--- OUTSIDE RECORDS SUMMARY | 2025-03-08 12:12 | XMS_ITS | Clinical Summary ---
Author Organization [employer] Address [address] [facility] 7[address] [place] [address] Care Team Providers Care Speech Pathologist Name Role Phone Candido Lozano MD Primary Care Provide r Medications amLODIPine (Norvasc) 5 MG tablet Take 1 tablet by mouth at bed time. 2 Active potassium citrate CR (Urocit-K-10) 10 mEq ER tablet Take 2 tablets by mouth in the morning and 2 tablets in the evening. 2 Active tolterodine LA (Detrol LA) 4 MG 24 hr capsule Take 1 capsule by mouth at bed time. 2 Active Aspirin Low Dose 81 MG chewable tablet 3 Active loperamide (Imodium) 2 MG capsule TAKE 1 CAPSULE BY MOUTH AFTER 1ST LOOSE STOOL & 1 CAP AFTER EACH SUBSEQUENT LOOSE STOOL, MAX 8/DAY 2 Active sulfamethoxazol e-trimethoprim (Bactrim) 400-80 MG tablet 3 Active simethicone (Mylicon) 80 MG chewable tablet TAKE 1 TABLET BY MOUTH THREE TIMES A DAY BEFORE MEALS NEEDED 90 tablet 6 5 Active metoprolol tartrate (Lopressor) 25 MG tablet Take 25 mg by mouth 1 (one) time. 3 Active acetaminophen (Tylenol 8 Hour) 650 MG ER tablet Take 1 tablet (650 mg) by mouth every 8 (eight) hours if needed for mild pain. Do not crush, chew, or split. 30 tablet 5 Active Active Problems Problem Noted Date Diagnosed Date Foul smelling urine 02/28/2025 Assessment & Plan (02/28/2025 1:09 PM EST): Per his report Will proceed with UA Dental abscess 01/21/2025 Paroxysmal atrial fibrillation (CMS/HCC) 025 Assessment & Plan (02/28/2025 1:08 PM EST): Patient with history of this Last checked he was back to NSR with frequent PACs, ECHO done in hospital EF preserved Per DC summary NO indication for anticoagulant as of discharge [id number] Outpatient follow up with cardiology recommended. Pt has an appointment with Dr Means later this month 03/05/2025 ECG today shows: Sinus tachycardia with PACs, first degree AV block, LAFB Faxed ECGs to [employer] Dr. Means who reviewed them and agreed with Sinus tachycardia Plan: Continue Metoprolol 25 mg po daily Keep cardiology appointment. I suspect he is tachycardic due to toothache but need to rule out UTI as well Assessment & Plan (11/29/2024 11:41 AM EDT): Back to NSR with frequent PACs, ECHO done in hospital EF preserved Per DC summary NO indication for anticoagulant as of discharge [id number] Outpatient follow up with cardiology recommended Continue Metoprolol 25 mg po daily Pressure ulcers of skin of multiple topographic sites 08/07/2024 Assessment & Plan (02/28/2025 11:21 AM EST): Patient is here for a follow up Had a second opinion visit at [facility] plastic surgery department. Referred to their Colorectal surgeon. Pt has appointment 03/20/2025 Pt will continue to follow with [facility] wound clinic Most recent admission to [facility] from 10/02-10/15/2024 for: fevers, rigors and increased purulent discharge from sacral coccygeal wounds. Had CT AP 09/05 revealing fistulous tracts between rectum and sacral ulcer, no signs of acute osteomyelitis at that time. CT abdomen ashowed: worsening edema around sacral [...] concerning for associated osteomyelitis and dural infection/inflammation Pt had an I&D by surgery 10/07 Cx gre: pseudomonas Initially treated with Cefepime +Flagyl+Linezolid, subsequently switched to Meropenem + Linezolid PICC line placed 10/10/2024. Recommended Abx duration 3 weeks End date 10/27/2024 Pt's PICC line was removed and he finished all antibiotics While in the hospital patient was evaluated by Colorectal surgeon Dr camilo Harden and ID team Assessment & Plan (01/31/2025 3:16 PM EST): Patient is here for a follow up Most recent admission to [facility] from 10/02-10/15/2024 for: fevers, rigors and increased purulent discharge from sacral coccygeal wounds. Had CT AP 09/05 revealing fistulous tracts between rectum and sacral ulcer, no signs of acute osteomyelitis at that time. CT abdomen ashowed: worsening edema around sacral [...] concerning for associated osteomyelitis and dural infection/inflammation Pt had an I&D by surgery 10/07 Cx gre: pseudomonas Initially treated with Cefepime +Flagyl+Linezolid, subsequently switched to Meropenem + Linezolid PICC line placed 10/10/2024. Recommended Abx duration 3 weeks End date 10/27/2024 Pt's PICC line was removed and he finished all antibiotics While in the hospital patient was evaluated by Colorectal surgeon Dr camilo Harden and ID team Patient tells me he has an appointment with [facility] on 02/13/2025 ( He was seen there 1 year ago) since he tells me the surgeons at [facility] have told him they cannot operate on him. Pt will continue to follow with wound clinic and surgical team at [facility], He was seen yesterday reports recently noticing more discharge Pt tells me he has an appointment at [facility] 02/13/2025 Assessment & Plan (11/29/2024 3:38 PM EDT): 42-year-old paraplegic male with multiple ulcers Patient has multiple pressure ulcers: Pt here for a HDF Admitted to [facility] 10/02-10/15/2024 after he presented with fevers [...] clinic and surgical team Getting dressings at [facility]. 2 weeks ago 11/12/2024 and has a follow up tomorrow Assessment & Plan (08/07/2024 1:37 PM EDT): 42-year-old paraplegic male with multiple ulcers Patient will continue to follow the recommendations from [facility] wound center Last seen 07/03/2024, Patient missed appointment July 25, Recommended Roho cushion for wheelchair which he has. Patient has multiple pressure ulcers: 1.-Left Perineum 2.-Sacrum 3.-Right posterior upper leg: perical calcium alginate gauze 4.-Midline Coccyx; impregnated dresssing 5.-Left proximal perineum 6.-Right Trocanter Getting collagen dressings at [facility]. Seen by Pasquale and Dr Harden Per wound clinic he should be doing daily dressing changes for all 6 wounds I was able to make an appointment for patient for tomorrow at 3: 15 PM Hospital discharge follow-up 04/19/2024 Assessment & Plan (11/29/2024 3:37 PM EDT): Pt here for a HDF Admitted to [facility] 10/02-10/15/2024 after he presented with fevers [...] Pt here for a HDF Admitted to [facility] 03/25/2024 He presented to the emergency [...] was last seen by ID 04/11/2024 at [facility] I was able to schedule an appointment for him for Tuesday04/23/2024 at 10:15 AM Routine physical examination 07/05/2023 Assessment & Plan (08/07/2024 1:37 PM EDT): Aside from his baseline and multiple pressure ulcers ,Within normal limits Assessment & Plan (07/05/2023 10:53 AM EDT): Within normal limits Poor dentition 12/01/2022 Overview (12/01/2022): Needs crown Was evaluated about 1 year ago at [facility], no dental accessible chairs Needs assistance getting into dental chair Assessment & Plan (12/01/2022 7:11 PM EDT): Will task MA to contact [facility] dental and verify there are no accessible chairs Also confirm with dental where we can refer the pt or where he can call for accessible dental care F/u PRN Chronic diarrhea 07/01/2022 Gallstones 07/01/2022 Assessment & Plan (07/01/2022 12:11 PM EDT): Seen on CT ordered by surgeon in December 2021 asymptomatic Essential hypertension 02/16/2022 Assessment & Plan (02/28/2025 11:15 AM EST): Patient here for a f/u Blood pressure controlled He is on a regimen of: Metoprolol 25 mg po BID and Amlodipine 5 mg po daily, prescribed by Cardiology Most recent electrolytes, Bun and Creatinine done on: Lab Results Component Value Date NA 140 11/14/2024 NA 141 04/16/2024 K 3.8 11/14/2024 K 3.4 04/16/2024 CL 104 11/14/2024 CL 107 04/16/2024 BUN 10 11/14/2024 BUN 12 04/16/2024 CREATININE 0.62 11/14/2024 CREATININE 0.78 04/16/2024 were within normal limits. patient advised to adhere to a low sodium diet, encouraged about medication Assessment & Plan (01/31/2025 12:02 PM EST): Patient here for a f/u Blood pressure controlled He is on a regimen of: Metoprolol 25 mg po BID and Amlodipine 5 mg po daily, prescribed by Cardiology Most recent electrolytes, Bun and Creatinine done on: Lab Results Component Value Date NA 140 11/14/2024 NA 141 04/16/2024 K 3.8 11/14/2024 K 3.4 04/16/2024 CL 104 11/14/2024 CL 107 04/16/2024 BUN 10 11/14/2024 BUN 12 04/16/2024 CREATININE 0.62 11/14/2024 CREATININE 0.78 04/16/2024 were within normal limits. patient advised to adhere to a low sodium diet, encouraged about medication Assessment & Plan (08/07/2024 10:38 AM EDT): [...] sleep apnea syndrome 02/16/2022 Assessment & Plan (01/31/2025 3:17 PM EST): Pt had sleep study 06/2022 that confirmed the diagnosis of Mild ILENE Pt tells me he is using his Cpap machine but needs supplies has a follow up with sleep lab in March Assessment & Plan (07/01/2022 12:12 PM EDT): [...] comorbidity and body mass index (BMI) of 36.0 to 36.9 in adult 07/09/2014 Assessment & Plan (01/31/2025 12:03 PM EST): Patient has been counseled and educated about diet and exercise. Pt regained 4 lbs since last visit Personal goal of weight loss discussed Patient has comorbidity of:Patient has comorbidity of: paraplegic Assessment & Plan (08/07/2024 10:39 AM EDT): [...] intestines and surrounding skin. Had appt with [facility] Surgery 09/06/22 Dr. Ball. Pending surgery. [...] Self cath. s/p Colostomy placed. released from retirement July 23, 2013 after 1.5 years. 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 Crenshaw Pt was seen at [facility] on 10/25/2011 and on 11/26/2011 after [...] Self cath. s/p Colostomy placed. released from retirement July 23, 2013 after 1.5 years. On probation. 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 Crenshaw Pt was seen at [facility] on 10/25/2011 and on 11/26/2011 after [...] Self cath. s/p Colostomy placed. released from retirement July 23, 2013 after 1.5 years. On probation. 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 Crenshaw Pt was seen at [facility] on 10/25/2011 and on 11/26/2011 after [...] will continue to follow the recommendations from [facility] wound center for daily soap and water wash Aquacel foam adhesive dressing to these wounds. Recommended Roho cushion for wheelchair which the patient states he has. Assessment & Plan (12/01/2022 7:12 PM EDT): Will task DME specialist to Rx Foam dressings F/u PRN Neurogenic bladder 03/21/1960 Assessment & Plan (01/31/2025 11:59 AM EST): Under the care of [facility] Urology Last note 10/26/2024 they recommended 1 year follow up Resolved Problems Problem Noted Date Diagnosed Date Resolved Date Acute conjunctivitis of both eyes 07/01/2022 04/19/2024 Assessment & Plan (07/01/2022 11:05 AM EDT): Pt with c/o bilateral eye redness, discharge for a week Plan: erythromycin ointment BID x 1 week Encounters Date Type Department Care Team Description 03/02/2025 Refill [facility] ADULT DENTAL [address] [place] [address] Dave Goldberg DDS 03/02/2025 Refill [facility] MED[facility] [place] [address] Candido Lozano MD Acute cystitis without hematuria 02/28/2025 11:15 AM EST Office Visit [place] [address] Candido Lozano MD Pressure ulcers of skin of multiple topographic sites (Primary Dx); Essential hypertension; Foul smelling urine; Paroxysmal atrial fibrillation (CMS/HCC) (HCC) 02/28/2025 Telephone [facility] [place] [address] Candido Lozano MD Care Coordination 02/28/2025 Travel 02/21/2025 Telephone [facility] [place] [address] Candido Lozano MD CHART PREP 02/12/2025 Patient Outreach [place] [address] Candido Lozano MD Care Coordination ([facility] Do Liu f/u, program graduation ) 02/01/2025 Telephone [facility] MED[facility] [place] [address] Candido Lozano MD Durable Medical Equipment 01/31/2025 11:30 AM EST Office Visit [facility] [address] [place] [address] Candido Lozano MD Pressure ulcers of skin of multiple topographic sites (Primary Dx); Essential hypertension; Neurogenic bladder; Class 2 severe obesity due to excess calories with serious comorbidity and body mass index (BMI) of 36.0 to 36.9 in adult; Obstructive sleep apnea syndrome 01/31/2025 Travel 01/30/[address] [address] Candido Lozano MD Chart prep 01/21/2025 11:00 AM EST Office Visit [facility] ADULT DENTAL [address] [place] [phone] Dave Goldberg DDS Dental abscess (Primary Dx) 2024 Patient Outreach [address] [address] Candido Lozano MD Care Management ([facility]- f/u call) 12/11/2024 Patient Outreach [address] [address] Candido Lozano MD Care Coordination ([facility] assessment, enrolled) from Last 3 Months Immunizations Immunization Administration [...] Tobacco: Never Tobacco Cessation:Counseling Given: Not Answered Alcohol Use Standard Drinks/Week Comments Defer 0 [...] Sign Reading Time Taken Comments Blood Pressure 138/82 02/28/2025 11:15 AM EST Pulse 80 02/28/2025 11:05 AM EST Temperature 36.3 C (97.4 F) 02/28/2025 11:05 AM EST Respiratory Rate 19 02/28/2025 11:05 AM EST Oxygen Saturation 98% 11/29/2024 11:15 AM EDT Inhaled Oxygen Concentration - - Weight 115 kg (254 lb) 02/28/2025 11:05 AM EST Height 170.2 cm (5' 7 ) 02/28/2025 11:05 AM EST Body Mass Index 39.78 02/28/2025 11:05 AM EST Plan of Treatment Upcoming Encounters Date Type Department Care Team (Late st Contact Info) Description 04/26/2025 10:30 AM EST Office Visit [facility] ADULT DENTAL [address] [place] [address] Dave Goldberg, BRUNOS [address] [place] [address] Health Maintenance Due Date Last Done Comments Anal Pap 1979 CT Colonography 1979 Colonoscopy 1979 Colorectal Cancer Screening 1979 FIT DNA/Cologuard 1979 FIT 1979 FOBT 1979 HIV Screening 1979 Sigmoidoscopy 1979 Family Planning (PISQ) 12/16/1994 HPV Vaccines (1 - Male 3-dose series) 12/16/1994 Hepatitis C Screening 12/16/1997 Hepatitis A Vaccines (1 of 2 - Risk 2-dose series) 12/16/1998 Hepatitis B Vaccines (1 of 3 - 19+ 3-dose series) 12/16/1998 Dental Oral Exam 12/19/2021 06/17/2021, 03/31/2016 Dental Prophylaxis 12/19/2021 06/17/2021 Dental X-Ray: Bitewings 06/18/2022 06/17/2021, 03/31 Dental X-Ray: Full Mouth 06/18/2024 022, 06/17/2021, 03/31/2016 COVID-19 Vaccine ( season) 2024 04/14/2021, 08/08/2020, 07/17/2020 Influenza Vaccine (#1) 2024 9, 01/11/2019, 12/27/2017, Additional history exists DTaP/Tdap/Td Vaccines (2 - Td or Tdap) 2024 2014 Alcohol/Substance Use Screening 08/07/2025 08/07/2024 Disability Screening 08/07/2025 08/07/2024 Depression Screening 11/20/2025 11/20/2024, 11/21/19 25 SDOH Screening 12/11/2025 12/11/2024 Tobacco Screening 01/21/2026 01/21/2025 Lipid Panel 04/16/2029 04/16/2024, 07/01/2021 Zoster Vaccines [...] Procedure Name Priority Date/Time Associated Diagnosis Comments ECG 12-LEAD Routine 02/28/2025 3:55 PM EST Paroxysmal atrial fibrillation (CMS/HCC) (HCC) CASE PRESENTATION, DETAILED AND EXTENSIVE TREATMENT PLANNING Routine 01/21/2025 11:00 AM EST INTRAORAL - PERIAPICAL FIRST RADIOGRAPHIC IMAGE Routine 01/21/2025 11:00 AM EST LIMITED ORAL EVALUATION - PROBLEM FOCUSED Routine 01/21/2025 11:00 AM EST LIPID PANEL, STANDARD Routine 04/16/2024 9:40 AM EST Essential hypertension PROPHYLAXIS - ADULT Routine 06/17/2021 1 2:00 AM EDT INTRAORAL - COMPLETE SERIES OF RADIOGRAPHIC IMAGES Routine 06/17/2021 12:00 AM EDT PERIODIC ORAL EVALUATION - ESTABLISHED PATIENT Routine 06/17/2021 12:00 AM EDT from Last 3 Months or Most Recently Relevant to Health Maintenance Results * ECG 12 lead (02/28/2025 3:55 PM EST) Narrative Candido Lozano MD - 02/28/2025 3:55 PM EST Sinus tachycardia HR 103 Frequent PAC's, LAFB us Candido Camara MD ECG ORDERABLES Final Result * (ABNORMAL) Lipid Panel, Standard (04/16/2024 9:40 AM EST) Triglycerides 82 <150 mg/dL [facility] Comment:Desirable Triglyceri de: less than 150 mg/dLBorderline High Triglyceride 150-199 mg/dLHigh Triglyceride: 200-499 mg/dLVery High Triglyceride: greater than or equal to 5OO mg/dL Cholesterol 143 <200 mg/dL [facility] Comment:Desirable Cholestero l: less than 200 mg/dLBorderline High Cholesterol: 200-239 mg/dLHigh Cholesterol: greater than 239 mg/dL LDL Cholesterol Calculated 88 <100 mg/dL [facility] Comment:Desirable LDL: less than 100 mg/dLNear Optimal/Above Optimal LDL: 110- 129 mg/dLBorderline High LDL: 130-159 mg/dLHigh LDL: 160-189 mg/dLVery High LDL: greater than or equal to 190 mg/dL HDL Cholesterol 39(L) >40 mg/dL [facility] Comment:Desirable HDL: great er than 40 mg/dL Note: This HDL assay may give artificially low results in patients with liver disease. Blood Venous blood specimen / Unknown 04/16/2024 9:40 AM EST 04/16/2024 11:25 AM EST Candido Camara MD LAB BLOOD ORDERABLES Final Result [facility] [address] [place] [phone] from Last 3 Months or Most Recently Relevant to Health Maintenance Insurance [facility] STAND ADULT Care Teams Speech Pathologist Relationship Specialty Start Date End Date Candido Lozano MD [address] [place] [phone] PCP - General Internal Medicine 12/13/13 Brittany Wong [employer] Flatbed DriverContact Lens Polisher 03/08/24 [facility] 10/12/24
--- OUTSIDE RECORDS SUMMARY | 2025-03-08 12:12 | XMS_ITS | Encounter Summary ---
Author Organization [facility] Address [address] [place] [address] Phone Care Team Providers Care Black Powder Glazing Operator Name Role Phone Unavailable Primary Care Provider Unavailabl e Encounter Details Date Type Department Care Team (Late st Contact Info) Description 01/21/2020 Ancillary Orders [facility] [address] [place] [address] Komal Arvizu PA [address] [place] [address] [email or web address] Social History Tobacco Use Types Packs/Day [...] It is not the complete legal health record.[facility]
--- OUTSIDE RECORDS SUMMARY | 2025-03-08 12:12 | XMS_ITS | Encounter Summary ---
Author Organization [employer] Address [address] [facility] [address] [place] [address] Care Team Providers Care Manager Education Name Role Phone Candido Lozano MD Primary Care Provide r Reason for Visit * Reason Comments Med Refill Encounter Details Date Type Department Care Team ([facility] st Contact Info) Description 03/02/2025 Refill [facility] ADULT DENTAL [address], [place] [phone] Dave Goldberg DDS [address] [place] [address] Social History Tobacco Use Types Packs/Day Years [...] Description 04/26/2025 10:30 AM EST Office Visit [facility] ADULT DENT[facility] [address] [place] [address] Dave Goldberg DDS [address] [place] [address] documented as of this encounter Visit Diagnoses Not on filedocumented in this encounter Additional Health Concerns Assessment Noted Time PHQ-9 Depression Total Score: 0 11/21/19 2:07 PM EDT documented as of this encounter Care Teams Manager Education Relationship Specialty Start Date End Date Candido Lozano MD [address] [place] [address] PCP - General Internal Medicine 12/13/13 Brittany Wong Telemarketing AgentJava Architect 03/08/24 [facility] 10/12/24 documented as of this encounter
[2025-03-08 15:13] LABS: Appearance Urine Cloudy; Glucose Urine UA Negative (Negative); PH 6.0 (5.0-9.0); Specific Gravity - Urine 1.015 (1.005-1.025); UMIC TRIGGER UACC YES
[2025-03-08 15:54] LABS: UACC Culture Trigger YES
== END 2025-03-08 10:32 | disposition home or self-care (01) ==
LOC: HO.HKASLDS 10:31
PROVIDERS: PCP Internal Medicine; Visit Provider Internal Medicine
DX: R82.90 Unspecified abnormal findings in urine (principal)
CPT/HCPCS: 81001; 87086; 87088; 87186